=== PATIENT | female | born 1965 | race Caucasian/White ===

== ENCOUNTER → 2019-04-23 06:52 | Outpatient (CLI) | payer OTHER, SELFPAY ==
--- NOTE | 2019-04-23 06:55 | DI.MG.S_ITS ---
BILATERAL DIGITAL SCREENING MAMMOGRAM 3D/2D WITH CAD: 04/23/2019 CLINICAL: Routine screening. Comparison is made to exams dated: 03/20/2018 mammogram, 03/14/2017 mammogram, and 02/29/2016 mammogram - [facility]. There are scattered fibroglandular elements in both breasts. Current study was also evaluated with a Computer Aided Detection (CAD) system. No significant masses, calcifications, or other findings are seen in either breast. There has been no significant interval change. IMPRESSION: NEGATIVE There is no mammographic evidence of malignancy. A 1 year screening mammogram is recommended. This exam was interpreted at Station ID: [id number]. NOTE: For mammograms, a report in lay terms will be sent to the patient. Approximately 15% of breast malignancies will not be visualized mammographically. In the management of a palpable breast mass, a negative mammogram must not discourage biopsy of a clinically suspicious lesion. Electronically Signed By: Eric Huynh M.D. [facility]/paul:04/23/2019 18:59:17 letter sent: Normal Exam ACR BI-RADS Category 1: Negative 3341F
[2019-04-23 08:17] LABS: Hematocrit 42.8 % (36-46); Hemoglobin 14.7 g/dL (12.0-16.0); Mean Corpuscular HGB Conc 34.4 % (30-36); Mean Corpuscular Hemoglobin 30.3 PG (26-34); Platelet Count 235 X10^3/uL (150-400); Red Blood Cell Count 4.86 X10^6/uL (4.0-5.2); Red Cell Distribution Width 12.7 % (11.6-14.8); White Blood Cell Count 5.6 X10^3/uL (4.5-11.0)
[2019-04-23 08:30] LABS: Alanine Aminotransferase 17 IU/L (9-52); Albumin 4.7 g/dL (3.5-5.0); Albumin Globulin Ratio 1.6 (1.0-2.8); Alkaline Phosphatase 81 U/L (38-126); Aspartate Aminotransferase 23 IU/L (14-36); Bilirubin Total 0.7 mg/dL (0.2-1.3); Blood Urea Nitrogen 14 mg/dL (7-17); Calcium 9.8 mg/dL (8.4-10.2); Carbon Dioxide 29 mmol/L (22-32); Chloride 100 mmol/L (98-107); Cholesterol 253 mg/dL (140-199); Estimated Glomerular Filt Rate > 60.0 mL/min (>60); Globulin 2.9 g/dL (1.7-4.1); Glucose 99 mg/dL (70-100); HDL Cholesterol 71 mg/dL (40-60); HEMOLYSIS < 15 (0-50); LDL Cholesterol Calculated 156 mg/dL (<100); Potassium 4.6 mmol/L (3.4-5.1); Sodium 140 mmol/L (137-145); Total Protein 7.6 g/dL (6.3-8.2); Triglycerides 129 mg/dL (35-150)
[2019-04-23 08:42] LABS: Appearance Urine UA CLEAR; Bilirubin Urine UA NEGATIVE (NEGATIVE); Color Urine UA YELLOW; Glucose Urine UA NEGATIVE (Negative); Ketones Urine UA NEGATIVE (NEGATIVE); Leukocyte Esterase Urine UA NEGATIVE (NEGATIVE); Nitrite Urine UA NEGATIVE (Negative); Occult Blood Urine UA NEGATIVE (Negative); Protein Urine UA NEGATIVE (Negative); Specific Gravity Urine UA 1.015 (1.000-1.035); Urobilinogen Urine UA 0.2 E.U./dL (0.2); pH Urine UA 5.5 (4.5-8.0)
[2019-04-23 09:09] LABS: Thyroid Stimulating Hormone 2.51 uIU/mL (0.47-4.68)
[2019-04-23 15:57] LABS: Neutrophils Absolute Manual 2352 /uL (3000-5900); Total Cells Counted 100
[2019-04-23 15:58] LABS: RBC Morphology Normal Morphology
== END ==
PROVIDERS: PCP Family Medicine; Visit Provider Family Medicine
DX: Z12.39 Encounter for other screening for malignant neoplasm of breast (principal); Z00.00 Encounter for general adult medical examination without abnormal findings; Z13.220 Encounter for screening for lipoid disorders; Z13.29 Encounter for screening for other suspected endocrine disorder
CPT/HCPCS: 36415; 77063; 77067; 80053; 80061; 81003; 84443; 85025

== ENCOUNTER → 2019-07-22 07:03 | Outpatient (CLI) | payer OTHER, SELFPAY ==
[2019-07-22 08:28] LABS: Alanine Aminotransferase 14 IU/L (<35); Albumin 4.6 g/dL (3.5-5.0); Albumin Globulin Ratio 1.7 (1.0-2.8); Alkaline Phosphatase 79 U/L (38-126); Aspartate Aminotransferase 25 IU/L (14-36); BUN Creatinine Ratio 18.8 (6-22); Bilirubin Total 0.7 mg/dL (0.2-1.3); Blood Urea Nitrogen 15 mg/dL (7-17); Calcium 9.6 mg/dL (8.4-10.2); Carbon Dioxide 30 mmol/L (22-32); Chloride 102 mmol/L (98-107); Cholesterol 162 mg/dL (140-199); Estimated Glomerular Filt Rate > 60.0 mL/min (>60); Globulin 2.7 g/dL (1.7-4.1); Glucose 101 mg/dL (70-100); HDL Cholesterol 57 mg/dL (40-60); HEMOLYSIS < 15 (0-50); LDL Cholesterol Calculated 81 mg/dL (<100); Sodium 141 mmol/L (137-145); Total Protein 7.3 g/dL (6.3-8.2); Triglycerides 122 mg/dL (35-150)
== END ==
PROVIDERS: PCP Family Medicine; Visit Provider Family Medicine
DX: E78.5 Hyperlipidemia, unspecified (principal)
CPT/HCPCS: 36415; 80053; 80061

== ENCOUNTER → 2019-12-31 07:01 | Outpatient (CLI) | payer OTHER, SELFPAY ==
[2019-12-31 08:40] LABS: Alanine Aminotransferase 18 IU/L (<35); Albumin 4.5 g/dL (3.5-5.0); Albumin Globulin Ratio 1.7 (1.0-2.8); Alkaline Phosphatase 76 U/L (38-126); Aspartate Aminotransferase 28 IU/L (14-36); BUN Creatinine Ratio 18.8 (6-22); Bilirubin Total 0.4 mg/dL (0.2-1.3); Blood Urea Nitrogen 13 mg/dL (7-17); Calcium 9.7 mg/dL (8.4-10.2); Carbon Dioxide 28 mmol/L (22-32); Chloride 104 mmol/L (98-107); Cholesterol 166 mg/dL (140-199); Estimated Glomerular Filt Rate > 60.0 mL/min (>60); Globulin 2.7 g/dL (1.7-4.1); Glucose 100 mg/dL (70-100); HDL Cholesterol 67 mg/dL (40-60); HEMOLYSIS < 15 (0-50); LDL Cholesterol Calculated 77 mg/dL (<100); Potassium 4.2 mmol/L (3.4-5.1); Sodium 140 mmol/L (137-145); Total Protein 7.2 g/dL (6.3-8.2); Triglycerides 110 mg/dL (35-150)
== END ==
PROVIDERS: PCP Family Medicine; Referring Provider Family Medicine; Visit Provider Family Medicine
DX: E78.5 Hyperlipidemia, unspecified (principal)
CPT/HCPCS: 36415; 80053; 80061

== ENCOUNTER → 2020-05-04 08:46 | Outpatient (CLI) | payer OTHER, SELFPAY ==
[2020-05-04 09:28] LABS: Add Manual Diff / Slide Review NO; Basophils Absolute Auto 0 /uL (0-100); Basophils Percent Auto 0.6 % (0-2); Eosinophils Absolute Auto 200 /uL (0-450); Eosinophils Percent Auto 4.3 % (2-4); Hematocrit 41.4 % (36-46); Hemoglobin 14.2 g/dL (12.0-16.0); Lymphocytes Absolute Auto 2100 /uL (1100-4500); Lymphocytes Percent Auto 35.9 % (25-40); Mean Corpuscular HGB Conc 34.4 % (30-36); Mean Corpuscular Hemoglobin 30.6 PG (26-34); Monocytes Absolute Auto 400 /uL (0-900); Monocytes Percent Auto 6.8 % (3-14); Neutrophils Absolute Auto 3000 /uL (1500-7000); Neutrophils Percent Auto 52.4 % (50-75); Platelet Count 225 X10^3/uL (150-400); Red Blood Cell Count 4.65 X10^6/uL (4.0-5.2); White Blood Cell Count 5.8 X10^3/uL (4.5-11.0)
[2020-05-04 09:39] LABS: Hemoglobin A1C% w Est Avg Glu 5.1 % (4.0-6.0)
[2020-05-04 10:02] LABS: Alanine Aminotransferase 14 IU/L (<35); Albumin 4.7 g/dL (3.5-5.0); Albumin Globulin Ratio 1.7 (1.0-2.8); Alkaline Phosphatase 80 U/L (38-126); Aspartate Aminotransferase 23 IU/L (14-36); BUN Creatinine Ratio 20.8 (6-22); Bilirubin Total 0.5 mg/dL (0.2-1.3); Blood Urea Nitrogen 16 mg/dL (7-17); Calcium 9.8 mg/dL (8.4-10.2); Carbon Dioxide 30 mmol/L (22-32); Chloride 101 mmol/L (98-107); Cholesterol 188 mg/dL (140-199); Estimated Glomerular Filt Rate > 60.0 mL/min (>60); Globulin 2.8 g/dL (1.7-4.1); Glucose 97 mg/dL (70-100); HDL Cholesterol 70 mg/dL (40-60); HEMOLYSIS < 15 (0-50); LDL Cholesterol Calculated 87 mg/dL (<100); Potassium 4.7 mmol/L (3.4-5.1); Sodium 137 mmol/L (137-145); Total Protein 7.5 g/dL (6.3-8.2); Triglycerides 153 mg/dL (35-150)
[2020-05-04 10:08] LABS: TSH w/ Reflex to FT4 1.97 uIU/mL (0.47-4.68)
--- NOTE | 2020-05-04 11:28 | DI.MG.S_ITS ---
Patient Name: TOMAS MILIAN date: 1965 Sex: F Attending Physician: Olivia Indications: Date: 05/04/2020 11:34 At the request of: VISH VASQUEZ Procedure: MM screening mammo BI BILATERAL DIGITAL SCREENING MAMMOGRAM 3D/2D WITH CAD: 05/04/2020 CLINICAL: Routine screening. Comparison is made to exams dated: 04/23/2019 mammogram - [facility], 03/20/2018 mammogram, and 03/14/2017 mammogram - [facility]. There are scattered fibroglandular elements in both breasts. Current study was also evaluated with a Computer Aided Detection (CAD) system. There are grouped calcifications in the right breast at 7 o'clock middle depth. No other significant masses, calcifications, or other findings are seen in either breast. IMPRESSION: INCOMPLETE: NEEDS ADDITIONAL IMAGING EVALUATION The grouped calcifications in the right breast are indeterminate. Spot magnification views are recommended. This exam was interpreted at Station ID: [id number]. NOTE: For mammograms, a report in lay terms will be sent to the patient. Approximately 15% of breast malignancies will not be visualized mammographically. In the management of a palpable breast mass, a negative mammogram must not discourage biopsy of a clinically suspicious lesion. Electronically Signed By: Breanna garg/:05/04/2020 11:44:17 letter sent: Additional Imaging Needed ACR BI-RADS Category 0: Incomplete 3340F
== END ==
PROVIDERS: PCP Family Medicine; Referring Provider Family Medicine; Visit Provider Family Medicine
DX: Z12.31 Encounter for screening mammogram for malignant neoplasm of breast; E78.5 Hyperlipidemia, unspecified
CPT/HCPCS: 36415; 77063; 77067; 80053; 80061; 83036; 84443; 85025

== ENCOUNTER → 2020-06-02 13:54 | Outpatient (CLI) | payer OTHER, SELFPAY ==
--- NOTE | 2020-06-02 13:54 | DI.MG.S_ITS ---
UNILATERAL RIGHT DIGITAL DIAGNOSTIC MAMMOGRAM 3D/2D WITH ADDITIONAL VIEWS: 06/02/2020 CLINICAL: Additional evaluation requested from prior study. Comparison is made to exams dated: 05/04/2020 mammogram - [facility], 03/20/2018 [facility] - [facility], [facility]. There are scattered fibroglandular elements in right breast. Previously seen grouped microcalcifications in the right breast at 7 o'clock middle depth are no longer demonstrated. No other significant masses or calcifications are seen in the breast. IMPRESSION: PROBABLY BENIGN Previously demonstrated grouped microcalcifcations are not present on the current exam. These may have been artifactual on the preceding screeening mammogram. A 6 month follow-up is recommended to ensure stability. This exam was interpreted at Station ID: [id number]. NOTE: For mammograms, a report in lay terms will be sent to the patient. Approximately 15% of breast malignancies will not be visualized mammographically. In the management of a palpable breast mass, a negative mammogram must not discourage biopsy of a clinically suspicious lesion. Electronically Signed By: Gerard Vega M.D. jr/:06/02/2020 14:38:35 letter sent: Followup Recommended ACR BI-RADS Category 3: Probably benign 3343F
== END ==
PROVIDERS: PCP Family Medicine; Referring Provider Family Medicine; Visit Provider Nurse Practitioner Family
DX: R92.8 Other abnormal and inconclusive findings on diagnostic imaging of breast (principal)
CPT/HCPCS: 77065; G0279

== ENCOUNTER → 2020-11-08 09:04 | Outpatient (CLI) | payer OTHER, SELFPAY ==
--- NOTE | 2020-11-08 09:05 | DI.MG.S_ITS ---
UNILATERAL RIGHT DIGITAL DIAGNOSTIC MAMMOGRAM 3D/2D SHORT-TERM FOLLOW-UP: 11/08/2020 CLINICAL: Short term follow up of the right breast. Comparison is made to exams dated: 06/02/2020 mammogram, 05/04/2020 mammogram, 04/23/2019 mammogram - [facility], 03/20/2018 mammogram, 03/14/2017 mammogram, and 02/29/2016 mammogram - [facility]. There are scattered fibroglandular elements in right breast. There are stable grouped fine calcifications in the right breast at 6 o'clock middle depth. These appear stable compared to prior exams. No discrete calcifications are visualized on magnification views. The findings again are likely artifactual. No other significant masses or calcifications are seen in the breast. IMPRESSION: BENIGN There is no mammographic evidence of malignancy. Return to annual mammogram screening schedule is recommended. This exam was interpreted at Station ID: [id number]. NOTE: For mammograms, a report in lay terms will be sent to the patient. Approximately 15% of breast malignancies will not be visualized mammographically. In the management of a palpable breast mass, a negative mammogram must not discourage biopsy of a clinically suspicious lesion. Electronically Signed By: Tim cruz/:11/08/2020 09:34:38 letter sent: Normal Exam ACR BI-RADS Category 2: Benign Finding(s) 3342F
== END ==
PROVIDERS: PCP Family Medicine; Referring Provider Family Medicine; Visit Provider Family Medicine
DX: R92.8 Other abnormal and inconclusive findings on diagnostic imaging of breast (principal); N63.10 Unspecified lump in the right breast, unspecified quadrant
CPT/HCPCS: 77065; G0279

== ENCOUNTER → 2021-02-04 07:14 | Outpatient (CLI) | payer OTHER, SELFPAY ==
[2021-02-04 08:24] LABS: Alanine Aminotransferase 16 IU/L (<35); Albumin 4.3 g/dL (3.5-5.0); Albumin Globulin Ratio 1.5 (1.0-2.8); Alkaline Phosphatase 96 U/L (38-126); Aspartate Aminotransferase 26 IU/L (14-36); BUN Creatinine Ratio 18.4 (6-22); Bilirubin Total 0.5 mg/dL (0.2-1.3); Blood Urea Nitrogen 14 mg/dL (7-17); Calcium 9.7 mg/dL (8.4-10.2); Carbon Dioxide 27 mmol/L (22-32); Chloride 103 mmol/L (98-107); Cholesterol 181 mg/dL (140-199); Estimated Glomerular Filt Rate > 60.0 mL/min (>60); Globulin 2.9 g/dL (1.7-4.1); Glucose 98 mg/dL (70-100); HDL Cholesterol 70 mg/dL (40-60); HEMOLYSIS < 15 (0-50); LDL Cholesterol Calculated 89 mg/dL (<100); Potassium 4.2 mmol/L (3.4-5.1); Sodium 138 mmol/L (137-145); Total Protein 7.2 g/dL (6.3-8.2); Triglycerides 110 mg/dL (35-150)
== END ==
PROVIDERS: PCP Family Medicine; Referring Provider Family Medicine; Visit Provider Family Medicine
DX: E78.5 Hyperlipidemia, unspecified (principal)
CPT/HCPCS: 36415; 80053; 80061

== ENCOUNTER → 2021-05-14 11:13 | Outpatient (CLI) | payer OTHER, SELFPAY ==
--- NOTE | 2021-05-14 11:14 | DI.MG.S_ITS ---
BILATERAL DIGITAL SCREENING MAMMOGRAM 3D/2D WITH CAD: 05/14/2021 CLINICAL: Routine screening. Comparison is made to exams dated: 11/08/2020 mammogram, 06/02/2020 mammogram, 05/04/2020 mammogram, and 04/23/2019 mammogram - [facility]. There are scattered fibroglandular elements in both breasts. Current study was also evaluated with a Computer Aided Detection (CAD) system. No significant masses, calcifications, or other findings are seen in either breast. There has been no significant interval change. IMPRESSION: NEGATIVE There is no mammographic evidence of malignancy. A 1 year screening mammogram is recommended. This exam was interpreted at Station ID: [id number]. NOTE: For mammograms, a report in lay terms will be sent to the patient. Approximately 15% of breast malignancies will not be visualized mammographically. In the management of a palpable breast mass, a negative mammogram must not discourage biopsy of a clinically suspicious lesion. Electronically Signed By: Preston sullivan/paul:05/16/2021 07:53:09 letter sent: Normal Exam ACR BI-RADS Category 1: Negative 3341F
== END ==
PROVIDERS: PCP Family Medicine; Referring Provider Family Medicine; Visit Provider Family Medicine
DX: Z12.31 Encounter for screening mammogram for malignant neoplasm of breast (principal)
CPT/HCPCS: 77063; 77067

== ENCOUNTER → 2022-05-09 08:46 | Outpatient (CLI) | payer OTHER, SELFPAY ==
[2022-05-09 09:50] LABS: Add Manual Diff / Slide Review NO; Basophils Absolute Auto 0 /uL (0-100); Basophils Percent Auto 0.5 % (0-2); Eosinophils Absolute Auto 200 /uL (0-450); Eosinophils Percent Auto 3.7 % (2-4); Hematocrit 39.9 % (36-46); Hemoglobin 13.5 g/dL (12.0-16.0); Lymphocytes Absolute Auto 1800 /uL (1100-4500); Lymphocytes Percent Auto 37.1 % (25-40); Mean Corpuscular Hemoglobin 28.9 PG (26-34); Monocytes Absolute Auto 400 /uL (0-900); Monocytes Percent Auto 8.7 % (3-14); Neutrophils Absolute Auto 2400 /uL (1500-7000); Platelet Count 234 X10^3/uL (150-400); Red Blood Cell Count 4.69 X10^6/uL (4.0-5.2); Red Cell Distribution Width 14.6 % (11.6-14.8); White Blood Cell Count 4.9 X10^3/uL (4.5-11.0)
[2022-05-09 11:09] LABS: Alanine Aminotransferase 15 IU/L (<35); Albumin 4.5 g/dL (3.5-5.0); Albumin Globulin Ratio 1.5 (1.0-2.8); Alkaline Phosphatase 85 U/L (38-126); Aspartate Aminotransferase 23 IU/L (14-36); BUN Creatinine Ratio 16.9 (6-22); Bilirubin Total 0.7 mg/dL (0.2-1.3); Blood Urea Nitrogen 12 mg/dL (7-17); Calcium 9.1 mg/dL (8.4-10.2); Carbon Dioxide 27 mmol/L (22-32); Chloride 104 mmol/L (98-107); Cholesterol 183 mg/dL (140-199); Estimated Glomerular Filt Rate > 60 mL/min (>60); Glucose 95 mg/dL (70-100); HDL Cholesterol 64 mg/dL (40-60); HEMOLYSIS < 15 (0-50); LDL Cholesterol Calculated 98 mg/dL (<100); Potassium 3.9 mmol/L (3.4-5.1); Sodium 139 mmol/L (137-145); Total Protein 7.5 g/dL (6.3-8.2); Triglycerides 106 mg/dL (35-150)
== END ==
PROVIDERS: PCP Family Medicine; Referring Provider Family Medicine; Visit Provider Family Medicine
DX: E78.2 Mixed hyperlipidemia (principal); Z76.89 Persons encountering health services in other specified circumstances
CPT/HCPCS: 36415; 80053; 80061; 85025

== ENCOUNTER → 2022-07-25 08:30 | Outpatient (CLI) | payer OTHER, SELFPAY ==
--- NOTE | 2022-07-25 08:31 | DI.US.S_ITS ---
PROCEDURE: US THYROID INDICATIONS: NODULE TECHNIQUE: Real-time scanning was performed of the thyroid gland, with image documentation. COMPARISON: None. FINDINGS: Right: Thyroid lobe measures 5.6 x 1.0 x 1.6 cm, and is heterogeneous in echotexture. Left: Thyroid lobe measures 5.2 x 1.7 x 1.8 cm, and is heterogeneous in echotexture. Isthmus: 2.5 mm thick. Numerous tiny nodules are seen bilaterally. Nodule number: 1 Location: Left inferior Size: 2.7 x 1.5 x 1.6 cm. Composition: Solid Echogenicity: Hypoechoic Shape: wider than tall. Margins: Smokes Echogenic foci: Non Total points: 4 ACR TI-RADS category: 4 IMPRESSION: 1. A moderately suspicious hypoechoic solid nodule in the inferior pole of the left thyroid lobe. Recommend ultrasound-guided fine-needle aspiration biopsy. 2. Numerous tiny nodules are seen bilaterally. ACR TI-RADS definitions and recommendations: TI-RADS 1 (benign): 0 points. FNA not needed. TI-RADS 2 (not suspicious): 2 points. FNA not needed. TI-RADS 3 (mildly suspicious): 3 points. * FNA if 2.5 cm or larger, follow up if 1.5 cm or larger (at 1, 3, and 5 years). TI-RADS 4 (moderately suspicious): 4-6 points. * FNA if 1.5 cm or larger, follow up if 1 cm or larger (at 1, 2, 3, and 5 years). TI-RADS 5 (highly suspicious): 7 points or more. * FNA if 1 cm or larger, follow up if 0.5 cm or larger (every year for 5 years). Dictated by: Jeanine Brito M.D. on 07/25/2022 at 18:39 Approved by: Jeanine Brito M.D. on 07/25/2022 at 18:43
== END ==
PROVIDERS: PCP Family Medicine; Referring Provider Family Medicine; Visit Provider Family Medicine
DX: E04.1 Nontoxic single thyroid nodule (principal)
CPT/HCPCS: 76536

== ENCOUNTER 2022-10-11 06:27 | Day surgery (SDC) | payer OTHER, SELFPAY ==
[2022-10-09 13:13] VITALS: BMI 33.8
[2022-10-11] VITALS (7 sets, daily range): BP systolic 91–153; BP diastolic 59–103; PULSE 91–114; RESP 12–18; TEMP 35.8–36.3; O2SAT 100; BMI 33.8
--- NOTE | 2022-10-11 | PATH_ITS ---
[facility] Accession Number: [id number] No. of containers..01 Tissue . 01 Material submitted: . THYROID - LEFT THYROID . 01 Diagnosis: Left Lobe of Thyroid, Lobectomy: Adenomatoid nodule, present in association with multinodular hyperplasia (multiple colloid nodules). Negative for neoplasia and malignancy. MRV 10/17/2022 1820 Local . 01 Electronically signed: . Gisela Ron MD, Pathologist NPI- [id number] . 01 Gross description: . The specimen is received in formalin labeled with the patient's name, , and left thyroid and consists of an oriented left thyroid with a short black suture with no designation, per the requisition, and is now designated superior. The specimen weighs 5 grams and measures 3.2 cm SI, 2.6 cm ML, and 1.4 cm AP. The external surface is brown and slightly roughened with no discrete nodules identified. The anterior surface is inked blue, the posterior surface is inked black, and the presumed isthmus margin is inked orange. The specimen is serially sectioned from superior to inferior into seven slices to reveal a well-defined brown soft nodule measuring 1.5 x 1.3 x 1.2 cm within slices 3 through 7. The uninvolved parenchyma is brown soft and unremarkable with no additional lesions identified. Torque Tester sections are submitted as follows: . A1: Entire slice 2. A2: Entire slice 4. A3: Entire slice 5. A4: Entire slice 6. ([id number]) /[facility] 10/12/2022 1634 Local . 01 Pathologist provided ICD-10: E04.9 . 01 CPT . 767095 Specimen Comment: A courtesy copy of this report has been sent to [phone] Performed at: [address] [facility] [address] [facility] [place] [facility] [place], [place], [place] [id number] MD Tim Forrest MD Phone: [phone]
--- NOTE | 2022-10-11 07:34 | PM.PREOP ---
Pre-operative Note Interval Note History & Physical reviewed/Exam performed by Physician: Yes Changes to H&P: No
[2022-10-11] MEDS: LACTATED RINGERS 1,000 ML 100 ML IV ×2 (07:36→09:22)
[2022-10-11] MEDS: CEFAZOLIN 2 GM/100 ML PREMIX 100 ML IV (07:55)
--- NOTE | 2022-10-11 08:20 | SUR.OPER ---
Beach chair on padded OR bed. Head on gel donut, gel pad under heels. Bilateral arms padded with gel pads. Draw sheet brought over torso and secured. Pillow under knees. Safety belt at thigh. Cloth tape over blanket over lower legs.
[2022-10-11] MEDS: BUPIVACAINE 0.5% W/ EPI (PF) 30 ML VIAL INJ (08:43)
--- NOTE | 2022-10-11 09:50 | P.OP_ITS ---
Operative Date/Time/Diagnoses Date of procedure: 10/11/22 Time of procedure: 09:50 Pre-op diagnosis: Left thyroid mass Post-op diagnosis: same Procedure & Clinicians Procedure: Left axel thyroidectomy Same procedure as scheduled: Yes Indications: 57-year-old woman with globus sensation as result of a nontoxic benign left thyroid nodule, 3 cm. Surgeon: Teddy Bradford Rn Endocrinology: Angie Kimball Anesthesia Type: General Operative Notes Findings: Prominent left thyroid nodule. No lymphadenopathy. Specimen(s): other (Left axel thyroid) Estimated Blood Loss (mL): 10 Procedure in detail: Patient was brought to the operating room and placed supine on the table. Bilateral lower extremity compression devices were applied. General anesthesia was induced and he was intubated with an endotracheal tube. 2 g of Ancef were infused prior to skin incision. A shoulder roll was placed between the scapula to extend the neck. She was prepped and draped in sterile fashion. A time-out was performed to ensure the correct patient procedure necessary equipment within the operating room. A 6 cm collar incision 2 fingerbreadths above the sternal notch was made in the natural skin crease of her neck. The subcutaneous tissue was divided as well as the platysma using electrocautery. Subplatysmal flaps were developed in all directions. The midline raphe between the strap muscles was opened vertically along the direction of its fibers. The left thyroid lobe was prominent. The superior pole of the thyroid was approached 1st. The superior pole vessels were divided between silk suture close to the thyroid capsule. The external branch of the superior laryngeal nerve was observed as it approached the cricothyroid muscle. The superior parathyroid gland was identified and carefuly disected off the the thyroid for preservation The inferior pole was approached and the strap muscles were carefully dissected away from the thyroid. The thyroid was then mobilized medial and anterior and this provided exposure of the recurrent laryngeal nerve running in the tracheoesophageal groove and was protected posteriorly out of harms way. The middle thyroid vein was ligated and divided. The inferior parathyroid gland was identified on the posterior surface of the inferior thyroid pole and was diss ected off the thyroid for preservation. The thyroid lobe was then dissected off of the trachea in its entirety and passed off the field as specimen. The field was copiously irrigated with water and hemostasis was achieved. A Valsalva was provided and there was no evidence of hemorrhage. The left thyroid bed was then dressed with Surgicel. Strap muscles were reapproximated using 3 0 Vicryl and the platysma with 4 0 Vicryl. The skin was closed with a running 4-0 Monocryl suture followed by the application of Dermabond. Patient tolerated the procedure well. She emerged from anesthesia was extubated and transferred to the postoperative care unit in stable condition. The assistance of Dr. Kimball was necessary for assistance with exposure of the thyroid and its surrounding critical structures. Post-operative Condition: stable Disposition: same day surgery
== END 2022-10-11 10:32 | disposition home or self-care (01) ==
PROVIDERS: PCP Family Medicine; Referring Provider Surgery; Visit Provider Surgery
PROC: (CPT 60220; principal; 2022-10-11 07:45)
DX: E04.2 Nontoxic multinodular goiter (principal)
CPT/HCPCS: 60220; J0330; J0690; J1100; J1885; J2405; J2704; J3010

== ENCOUNTER → 2022-11-15 10:15 | Outpatient (CLI) | payer OTHER, SELFPAY ==
[2022-11-15 11:49] LABS: TSH w/ Reflex to FT4 1.47 uIU/mL (0.47-4.68)
== END ==
PROVIDERS: PCP Family Medicine; Referring Provider Surgery; Visit Provider Surgery
DX: E89.0 Postprocedural hypothyroidism (principal)
CPT/HCPCS: 36415; 84443

== ENCOUNTER → 2023-06-05 10:28 | Outpatient (CLI) | payer OTHER, SELFPAY ==
--- NOTE | 2023-06-05 10:30 | DI.US.S_ITS ---
PROCEDURE: US THYROID INDICATIONS: GLOBULUS SENSTATION TECHNIQUE: Real-time scanning was performed of the thyroid gland, with image documentation. COMPARISON: [facility], US, US THYROID, 07/25/2022, 8:35. FINDINGS: Right: Thyroid lobe measures 5.6 x 1.1 x 1.6 cm, and is homogeneous in echotexture. Left: Patient is status post interval left thyroidectomy with ill-defined soft tissue within left thyroid bed measures 1.2 x 0.5 x 0.4 cm in size and is homogenous in echotexture. Isthmus: 3 mm thick. Nodule number: 1 Location: Upper pole of right thyroid lobe Size: 0.6 x 0.2 x 0.4 cm. Composition: Solid Echogenicity: Hypoechoic Shape: Wider than tall Margins: Smooth Echogenic foci: Non Total points: 4 ACR TI-RADS category: Moderately suspicious. Nodule number: 2 Location: Mid pole right thyroid lobe Size: 0.5 x 0.4 x 0.3 cm Composition: Solid Echogenicity: Hypoechoic Shape: Wider than tall Margins: Smooth Echogenic foci: None Total points: 4 ACR TI-RADS category: Moderately suspicious IMPRESSION: 1. Finding is suggestive of interval left thyroidectomy with small amount of residual tissue in left thyroid bed as described above. Ultrasound follow-up is recommended. 2. Sub cm moderately suspicious right thyroid nodules as described above. ACR TI-RADS definitions and recommendations: TI-RADS 1 (benign): 0 points. FNA not needed. TI-RADS 2 (not suspicious): 2 points. FNA not needed. TI-RADS 3 (mildly suspicious): 3 points. * FNA if 2.5 cm or larger, follow up if 1.5 cm or larger (at 1, 3, and 5 years). TI-RADS 4 (moderately suspicious): 4-6 points. * FNA if 1.5 cm or larger, follow up if 1 cm or larger (at 1, 2, 3, and 5 years). TI-RADS 5 (highly suspicious): 7 points or more. * FNA if 1 cm or larger, follow up if 0.5 cm or larger (every year for 5 years). Dictated by: Saurabh Conde M.D. on 06/05/2023 at 12:42 Approved by: Saurabh Conde M.D. on 06/05/2023 at 12:45
== END ==
PROVIDERS: PCP Family Medicine; Referring Provider Surgery; Visit Provider Surgery
DX: E04.2 Nontoxic multinodular goiter (principal); R13.10 Dysphagia, unspecified; E89.0 Postprocedural hypothyroidism
CPT/HCPCS: 76536

== ENCOUNTER → 2023-06-12 09:04 | Outpatient (CLI) | payer OTHER, SELFPAY ==
--- NOTE | 2023-06-12 | DI.MG.S_ITS ---
BILATERAL DIGITAL SCREENING MAMMOGRAM 3D/2D WITH CAD: 06/12/2023 CLINICAL: Routine screening. Comparison is made to exams dated: 01/16/2022 mammogram - [facility], 05/14/2021 mammogram, 11/08/2020 mammogram, 05/04/2020 mammogram, 04/23/[address] - [facility], and 03/20/2018 mammogram - [facility]. There are scattered areas of fibroglandular density in both breasts (category b / 25%-50% glandular tissue). Current study was also evaluated with a Computer Aided Detection (CAD) system. No significant masses, calcifications, or other findings are seen in either breast. There has been no significant interval change. IMPRESSION: NEGATIVE There is no mammographic evidence of malignancy. A 1 year screening mammogram is recommended. Based on the Tyrer Cuzick model (a risk assessment model) the patient's lifetime risk is 7.1% and her 10 year risk is 2.6%. According to the ACR, ACS, and NCCN guidelines, an annual breast MRI exam along with mammogram is recommended if the patient's lifetime risk is 20% or greater. This exam was interpreted at Station ID: [id number]. NOTE: For mammograms, a report in lay terms will be sent to the patient. Approximately 15% of breast malignancies will not be visualized mammographically. In the management of a palpable breast mass, a negative mammogram must not discourage biopsy of a clinically suspicious lesion. Electronically Signed By: Eric sawyer/paul:06/12/2023 13:32:32 letter sent: Normal Exam ACR BI-RADS Category 1: Negative 3341F
== END ==
PROVIDERS: PCP Family Medicine; Referring Provider Family Medicine; Visit Provider Family Medicine
DX: Z12.31 Encounter for screening mammogram for malignant neoplasm of breast (principal)
CPT/HCPCS: 77063; 77067

== ENCOUNTER → 2023-06-15 09:33 | Outpatient (CLI) | payer OTHER, SELFPAY ==
--- NOTE | 2023-06-15 09:34 | DI.RAD.S_ITS ---
PROCEDURE: ESOPHOGRAM W/AIR INDICATIONS: FU after thyroid US COMPARISON: None. FINDINGS: Function: There is normal esophageal peristalsis. No elicited gastroesophageal reflux. There is normal transit of a calibrated barium tablet through the esophagus into the stomach. Morphology: Air-contrast images demonstrate normal mucosal morphology. Single contrast views show no esophageal strictures, extrinsic mass effects, or diverticula. Limited images of the stomach demonstrate normal appearance. IMPRESSION: No significant esophageal dysmotility. No upper esophageal diverticulum. No stricture. Dictated by: Eric Huynh M.D. on 06/15/2023 at 11:40 Approved by: Eric Huynh M.D. on 06/15/2023 at 11:41
== END ==
PROVIDERS: PCP Family Medicine; Referring Provider Surgery; Visit Provider Surgery
DX: R13.10 Dysphagia, unspecified (principal); R09.A2 Foreign body sensation, throat
CPT/HCPCS: 74220

== ENCOUNTER → 2023-08-22 08:50 | Outpatient (CLI) | payer OTHER, SELFPAY ==
[2023-08-22 10:05] LABS: Add Manual Diff / Slide Review NO; Basophils Absolute Auto 0 /uL (0-100); Basophils Percent Auto 0.7 % (0-2); Eosinophils Absolute Auto 200 /uL (0-450); Eosinophils Percent Auto 4.4 % (2-4); Hematocrit 42.7 % (36-46); Hemoglobin 14.8 g/dL (12.0-16.0); Lymphocytes Absolute Auto 1900 /uL (1100-4500); Mean Corpuscular HGB Conc 34.5 % (30-36); Mean Corpuscular Hemoglobin 30.1 PG (26-34); Monocytes Absolute Auto 400 /uL (0-900); Monocytes Percent Auto 7.8 % (3-14); Neutrophils Absolute Auto 2600 /uL (1500-7000); Neutrophils Percent Auto 51.1 % (50-75); Platelet Count 216 X10^3/uL (150-400); Red Blood Cell Count 4.91 X10^6/uL (4.0-5.2); Red Cell Distribution Width 12.5 % (11.6-14.8); White Blood Cell Count 5.2 X10^3/uL (4.5-11.0)
[2023-08-22 10:33] LABS: Alanine Aminotransferase 18 IU/L (<35); Albumin 4.6 g/dL (3.5-5.0); Albumin Globulin Ratio 1.4 (1.0-2.8); Alkaline Phosphatase 77 U/L (38-126); Aspartate Aminotransferase 24 IU/L (14-36); BUN Creatinine Ratio 19.1 (6-22); Bilirubin Total 0.9 mg/dL (0.2-1.3); Blood Urea Nitrogen 13 mg/dL (7-17); Calcium 9.7 mg/dL (8.4-10.2); Carbon Dioxide 28 mmol/L (22-32); Chloride 103 mmol/L (98-107); Cholesterol 178 mg/dL (140-199); Estimated Glomerular Filt Rate > 60 mL/min (>60); Globulin 3.2 g/dL (1.7-4.1); Glucose 94 mg/dL (70-100); HDL Cholesterol 62 mg/dL (40-60); HEMOLYSIS < 15 (0-50); LDL Cholesterol Calculated 97 mg/dL (<100); Potassium 3.9 mmol/L (3.4-5.1); Sodium 140 mmol/L (137-145); Total Protein 7.8 g/dL (6.3-8.2); Triglycerides 93 mg/dL (35-150)
== END ==
PROVIDERS: PCP Family Medicine; Referring Provider Family Medicine; Visit Provider Family Medicine
DX: E78.2 Mixed hyperlipidemia (principal); E04.9 Nontoxic goiter, unspecified
CPT/HCPCS: 36415; 80053; 80061; 84443; 85025

== ENCOUNTER → 2023-08-30 09:36 | Outpatient (CLI) | payer OTHER, SELFPAY ==
--- NOTE | 2023-08-30 09:37 | DI.RAD.S_ITS ---
Bone Density Report Name: TOMAS MILIAN Age: 58 Sex: Female Ethnicity: White Date of : 1965 Indication: postmenopausal; screening for osteoporosis; Referring Provider: LELAND PÉREZ Study: Bone densitometry was performed. Exam Date: August 30, 2023 Accession number: [id number] Bone Density: Region BMD T-score Z-score Classification AP Spine(L1, L2, L4) 0.700 -3.0 -1.8 Osteoporosis Femoral Neck (Left) 0.589 -2.3 -1.1 Osteopenia Total Hip (Left) 0.663 -2.3 -1.4 Osteopenia Femoral Neck (Right) 0.604 -2.2 -1.0 Osteopenia Total Hip (Right) 0.650 -2.4 -1.5 Osteopenia Total Hip Mean 0.656 -2.4 -1.5 Osteopenia World Health Organization criteria for BMD impression classify patients as: Normal (T-score at or above -1.0), Osteopenia (T-score between -1.0 and -2.5), or Osteoporosis (T-score at or below -2.5). 10-year Fracture Risk: FRAX not reported because: Some T-score for Spine Total or Hip Total or Femoral Neck at or below -2.5 Impression: The patient has osteoporosis, based on the Total Spine T-score. Discussion: INCREASED RISK OF FRACTURE. BONE DENSITY IS UNDESIRABLY LOW AT ONE OR MORE SKELETAL SITES, CONSISTENT WITH POSTMENOPAUSAL OSTEOPOROSIS. This patient's lowest T-score meets the World Health Organization's (WHO) criteria for osteoporosis at one or more sites (T-score -2.5 or below). In untreated patients, the risk of osteoporotic fracture increases approximately two-fold for each 1.0 SD decrease in T-score. Low bone density is not the only risk factor for fracture; also consider factors such as patient's age, frailty or poor health, risk of falling, risk of injury, previous osteoporotic fracture, family history of osteoporosis, cigarette smoking, low body weight, etc. Not everyone with low bone mineral density has osteoporosis; osteomalacia and other metabolic bone disorders should also be considered. Patients who have osteoporosis should be evaluated for specific diseases and conditions (secondary causes) that may cause or contribute to bone loss. The [place] [employer]ocrinologists (AACE) and National Osteoporosis Foundation (NOF) recommend pharmacologic intervention for all postmenopausal women whose T-score is in this range. The patient should follow a healthful lifestyle (good nutrition with adequate calcium and vitamin D, and appropriate weight-bearing exercise). Follow-Up: Consider a repeat BMD and Vertebral Fracture Assessment (VFA) exam in 2 years or sooner if medically necessary, to reassess this patient's status. Reported by: LAZARA FLORES M.D. on 08/30/2023 10:01:00 AM.
== END ==
PROVIDERS: PCP Family Medicine; Referring Provider Family Medicine; Visit Provider Family Medicine
DX: Z13.820 Encounter for screening for osteoporosis (principal); M81.0 Age-related osteoporosis without current pathological fracture
CPT/HCPCS: 77080

== ENCOUNTER → 2023-09-12 13:05 | Outpatient (CLI) | payer OTHER, SELFPAY ==
[2023-09-12 17:18] LABS: Vitamin D 25 Hydroxy (D3) 36.7 ng/mL (30.0-100.0)
== END ==
PROVIDERS: PCP Family Medicine; Referring Provider Family Medicine; Visit Provider Family Medicine
DX: M81.0 Age-related osteoporosis without current pathological fracture (principal); E55.9 Vitamin D deficiency, unspecified
CPT/HCPCS: 36415; 82306

== ENCOUNTER 2023-11-05 09:00 | Outpatient (RCR) | payer OTHER, SELFPAY ==
--- NOTE | 2023-10-04 15:32 | PT.OIE ---
Current Diagnoses Age-related osteoporosis without current pathological fracture (10/04/23) Past Medical History (Last Updated 09/10/23 @ 15:30 by Elias Saleh DO) Arthralgia of hands, bilateral Fibroids (~2015) Osteoporosis Ovarian cyst (~1994) Segmental and somatic dysfunction of rib cage Swallowing problem Thyroid goiter Tinnitus Upper extremity somatic dysfunction Vaginal dryness, menopausal Vitamin D deficiency Well adult exam Past Surgical History (Last Updated 10/19/22 @ 09:57 by Teddy Bradford MD) Anesthesia H/O partial thyroidectomy History of hysterectomy (~01/2016) History of tonsillectomy [place] teeth removed Visit Care Team Role Provider Type Elias Saleh DO Attending Provider Physician Family Provider Primary Care Provider Referring Provider Specialty: [facility] Practice Address: [address] [place] [address], [facility] Email: Physical Therapy Initial Evaluation PT-OP-A Visit Information Start: 10/04/23 09:44 Freq: Status: Active Protocol: Document 10/04/23 09:44 NM (Rec: 10/04/23 11:43 NM [id number]) Out-Patient Physical Therapy Visit Information Visit Information Visit Type Initial Evaluation Visit Start Time 09:45 Visit Stop Time 10:30 Visit Number 45 Evaluation Information Evaluation Date 10/04/23 Precautions Precautions Osteoporosis (no spinal flexion) PT-OP-B Current Condition Start: 10/04/23 09:44 Freq: Status: Active Protocol: Document 10/04/23 09:44 NM (Rec: 10/04/23 11:43 NM [id number]) Current Condition History of Current Condition Onset Date September 2023 History of Current Condition Pt presents with newly diagnosed osteoporosis without fracture in September 2023. She is normally very active with yoga, line dancing, clogging, hiking, walking, gardening ( heavy landscaping, shoveling, digging), lifting (e.g. hauling cement), kayaking. However, she has limited her activity since her dx in early September due to fear of injury . Hx of stress fracture to R tibia from dance (several decades ago). No other significant PMH or injuries. Reports no changes to balance. No hx of falls or fractures. She has started taking calcium and vitamin D; reports physician gave restrictions of don't bend over, don't twist . She is concerned about being able to participate in her daily or seasonal activities. Prior Treatments and Tests No previous PT; 08/25 DEXA indicates AP spine osteoporosis, osteopenia B femoral necks Treatment Goals Patient/Caregiver Goals Safely exercise, safely continue with ADLs/ recreational, safely be able to nut picker small relatives who live nearby Prior Functional Status Baseline Function- ADL's Independent Baseline Function- Mobility Independent Baseline Function- Recreation/Hobbies Yoga 20-30 min/day; Daily walks 1-2 mi/day and trail walks 1x/wk. Seasonal- gardening, kayaking PT-OP-C Subjective Start: 10/04/23 09:44 Freq: Status: Active Protocol: Document 10/04/23 09:44 NM (Rec: 10/04/23 16:22 NM [id number]) OP-PT Subjective Patient Comments Patient Comments see hx above for pt report OP-PT Pain Assessment Pain Assessment Grid Paper Pain Assessment Grid Completed Yes: No pain reported PT-OP-D Balance Start: 10/04/23 09:44 Freq: Status: Active Protocol: Document 10/04/23 09:44 NM (Rec: 10/04/23 11:43 NM [id number]) OP-PT Balance Assessment Sitting Balance Static Sitting Balance Ability Normal Dynamic Sitting Balance Ability Normal Standing Balance Static Standing Balance Ability Normal Dynamic Standing Balance Ability Normal Device Used none Balance Tests Mendez Balance Test Mendez Balance Test Score 56/56 mCTSIB mCTSIB Position 1 30 seconds eyes open, stable surface; no sway mCTSIB Position 2 30 seconds eyes closed, stable surface; minimal sway, ankle strategy mCTSIB Position 3 30 seconds eyes closed, foam surface; minimal sway, ankle strategy mCTSIB Position 4 30 seconds eyes closed, foam surface; increased sway,no LOB , ankle strategy Romberg Romberg 30 seconds, minimal sway Single Limb Standing Single Limb- Right 30 seconds Single Limb- Left 30 seconds Tandem Tandem Standing 30 seconds ea LE, increased sway Chance Fall Scale Copyright Permission PT-OP-E Functional Tests Start: 10/04/23 09:44 Freq: Status: Active Protocol: Document 10/04/23 09:44 NM (Rec: 10/04/23 11:43 NM [id number]) Functional Tests 30 Second Sit to Stand Test Score 19 Comments demos increased trunk flexion with squat PT-OP-F Manual Assessment Start: 10/04/23 09:44 Freq: Status: Active Protocol: Document 10/04/23 09:44 NM (Rec: 10/04/23 11:43 NM [id number]) Manual Assessments Soft Tissue Assessment Soft Tissue Mobility Assessment Minimal restrictions of hip flexors, hamstrings Joint Mobility Assessment Joint Mobility Assessment Full B hip/knee PROM, lumbar spine AROM PT-OP-G Mobility & Gait Start: 10/04/23 09:44 Freq: Status: Active Protocol: Document 10/04/23 09:44 NM (Rec: 10/04/23 11:43 NM [id number]) OP Gait Assessment Gait Gait Assistance Required: Independent Distance (Feet) 500 Assistive Devices Assistive Device None Gait Deviations General Gait Pattern Within Normal Limits Comments Gait Comments Pt has steady gait, increased gait speed. Good awareness of surroundings Stair Climbing Evaluation Evaluation Level of Assist On Stairs Independent Devices Stair Climbing Assistive Devices None Technique/Endurance Stair Climbing Direction Ascend and Descend Stair Climbing Technique Step Over Step Number of Steps Climbed 4 Stair Climbing Set # Repetitions (reps) 5 Comments Stair Climbing Comments Very quick speed, good balance PT-OP-H Neuro Start: 10/04/23 09:44 Freq: Status: Active Protocol: Document 10/04/23 09:44 NM (Rec: 10/04/23 11:43 NM [id number]) Sensation Evaluation Comments Summary Comments Intact BLE light touch sensation PT-OP-J Posture/Palpation/Skin Start: 10/04/23 09:44 Freq: Status: Active Protocol: Document 10/04/23 09:44 NM (Rec: 10/04/23 11:43 NM [id number]) Posture Evaluation Position Standing Evaluation View Lateral Head/C-Spine Posture Forward Head Shoulder Posture (L) Forward,(R) Forward,(R) Elevated Scapula Posture (L) Protracted,(R) Protracted Pelvis Posture Anteriorly Tilted Weight Distribution Balanced Hip Posture (L) Externally Rotated,(R) Externally Rotated Patellar Posture (L) Superior,(R) Superior Ankle/Foot Posture (L) Forefoot Eversion,(R) Forefoot Eversion PT-OP-K Range of Motion Start: 10/04/23 09:44 Freq: Status: Active Protocol: Document 10/04/23 09:44 NM (Rec: 10/04/23 11:43 NM [id number]) Lumbar Spine Range of Motion Lumbar Spine Active Percentage Testing Position Standing Flexion 100 Extension 100 Rotation Left 100 Rotation Right 100 Lateral Flexion Left 100 Lateral Flexion Right 100 Comments Full AROM, cued straight leg to prevent compensation PT-OP-M Strength Start: 10/04/23 09:44 Freq: Status: Active Protocol: Document 10/04/23 09:44 NM (Rec: 10/04/23 11:43 NM [id number]) Trunk Strength Trunk Manual Muscle Testing Flexion 4 Good Extension 4 Good Rotation Left 5 Normal Rotation Right 5 Normal Lateral Flexion Left 4 Good Lateral Flexion Right 4 Good Comments Trunk flexion resisted motion performed in sitting with pt using upright posture against resistance without increased trunk flexion Hip Strength Hip Manual Muscle Testing Left Flexion (L2) 4+ Good+ Extension (S1) 4- Good- Abduction 4 Good Adduction 4+ Good+ External Rotation 4+ Good+ Internal Rotation 4+ Good+ Right Flexion (L2) 4+ Good+ Extension (S1) 4- Good- Abduction 4 Good Adduction 4+ Good+ External Rotation 4+ Good+ Internal Rotation 4+ Good+ Knee Strength Knee Manual Muscle Testing Left Flexion (S2) 5 Normal Extension (L3) 5 Normal Right Flexion (S2) 5 Normal Extension (L3) 5 Normal Ankle/Foot Strength Ankle and Foot Manual Muscle Testing Left Dorsiflexion (L4) 5 Normal Plantarflexion (S1) 5 Normal Inversion 5 Normal Eversion (S1) 5 Normal Right Dorsiflexion (L4) 5 Normal Plantarflexion (S1) 5 Normal Inversion 5 Normal Eversion (S1) 5 Normal PT-OP-Q Treatments Start: 10/04/23 09:44 Freq: Status: Active Protocol: Document 10/04/23 09:44 NM (Rec: 10/04/23 11:43 NM [id number]) Therapeutic Activity Therapeutic Activity Hip hinge Reps/Minutes 8 min total Comments 1. Hip hinge with staggered stance; 2x10 Pt in staggered stance, hands on hips for tactile cue. Verbal cue to bring hips back or act like you're closing a car door using your bottom, PT initially facilitating at hips to promote hinge. 2. Hip hinge with staggered stance to nut picker elevated object; 1x10 ea LE in front Pt in staggered stance with football placed on 16 surface , hip hinge to nut picker football, then return to upright posture; brief pause, then return football to surface using hip hinge strategy. PT cued pt for slower, controlled motion vs quick movements to limit shear forces at anterior spine 3. Golfer hinge (single leg, post leg elevated) to nut picker object from 16 step; 1x10 ea LE Due to pt preference, pt using single leg to stand while performing hip hinge, 1 UE support prn for balance. Reaching with unsupported hand or both hands for football at lower surface, grabbing, then lifting and return to standing. Reverse Self-Care/Home Management Treatment Education Patient Education Body Mechanics,Home Exercise Program,Joint Protection, Posture,Safety Other Education 8 min: Educated on osteoporosis dx, effect on body. Discussed with pt current activity level, need to activity modification for safety to prevent injury to spine or hips. Stressed importance of continued physical activity, including daily walking. Educated briefly regarding preventing fwd flexed posture, use of hip hinge when bending to prevent load to anterior spine, joint protection with activity (e.g . shoveling and lifting). Instructed no lift without hinge, no fwd flex, no twist without moving body. PT strongly recommended against pt's plan to move heavy tree this weekend for her garden. Issued HEP with hip hinge activity using staggered stance PT-OP-T Assessment and Plan Start: 10/04/23 09:44 Freq: Status: Active Protocol: Document 10/04/23 09:44 NM (Rec: 10/04/23 11:43 NM [id number]) Physical Therapy Assessment Rehab Potential Rehabilitation Potential Excellent Evaluation Complexity Number of Personal Factors/Comorbidities 0 Number of Body Systems Impaired 1-2 Clinical Presentation at Evaluation Stable Impairments Impairments Activity Tolerance,Balance, Coordination,Functional Activities,Functional Mobility ,Gait,Posture,ROM,Soft Tissue Mobility,Strength Goals Five Impairment education Training Developer Goal (LTG) Pt will be provided with at least 3 resources for osteoporosis regarding condition, diet, exercise, activity modification, and safe movement patterns for further education regarding diagnosis and to decrease risk of fracture. LTG Duration 6 weeks Four Impairment trunk extensor strength Training Developer Goal (LTG) Pt will be able to perform at least 10 bilateral bird dogs with good form (stable pelvis) or a modified plank or better for at least 30 seconds in order to demonstrate improved core stability and spinal extensor strength required to prevent forward trunk posture. LTG Duration 6 weeks Three Impairment strength Impairment B hip ext 4-/5, hip abd 4/5 Senior Living Goal (LTG) Pt will improve B hip ext and B hip abd strength to at least 4+/5 in order to demonstrate improved hip strength needed to stabilize pelvis during activity. LTG Duration 6 weeks Two Impairment exercise Impairment Not performing osteoporosis- specific exercise program Short Term Goal (STG) Pt will report compliance with osteoporosis-specific HEP at least 3x/wk in order to demonstrate improved understanding of diagnosis. STG Duration 3 weeks Senior Living Goal (LTG) Pt will report compliance with osteoporosis-specific exercise program at least 3x/ wk for maintainance to maximize gains made during PT. LTG Duration 6 weeks One Impairment body mechanics Short Term Goal (STG) Pt will demonstrate good hip hinge mechanism during bending and lifting for at least 5/10 reps in order to demonstrate improved safety and posture to decrease risk of compression fracture. STG Duration 3 weeks Senior Living Goal (LTG) Pt will demonstrate good body mechanics utilizing hip hinge and limiting spinal flexion when lifting a 10# object from the floor in order to demonstrate improved safety and posture to decrease risk of compression fracture. LTG Duration 6 weeks Assessment Summary Assessment Pt is a 58 y.o. female presenting with newly diagnosed osteoporosis without fracture. Her BMD scores indicate osteoporosis of the spine and osteopenia of the hips. Pt recently began supplementing with vitamin D and calcium. She demonstrates slight forward head and shoulders posture, but no hyperkyphosis. Pt has full lumbar spine and hip/knee AROM . She has limitations in bilateral hip extensor and abductor strength; however, global hip/knee strength 4+ to 5/5. Her 30 sec sit to stand time score is 19 squats; pt demos increased tendency for trunk flexion with poor hip hinge movement. Her Mendez balance test is 56/56, and pt is able to maintain balance during good ankle strategy on both stable and unstable surfaces with changing RAMON and vision. Pt is very active, participating in daily walks and other high intensity recreational activities including kayaking and gardening, which involve increased trunk ROM and lifting. PT educated pt on exam findings and POC, osteoporosis and effect on anatomy, spinal arthokinematics when loaded and flexed, in addition need for safe body mechanics and need for activity modification . PT also instructed pt in hip hinge activity using staggered modified single leg stance. Pt would benefit from skilled PT for further education regarding body mechanics and posture, for creation of spine-safe osteoporosis exercise program, and for safe activity modification to improve bone mineral density and decrease risk of fracture. Physical Therapy Plan Frequency and Duration Frequency of Treatment 1-2/wk Duration of treatment (weeks) 6 Plan of Care Start Date 10/04/23 Plan of Care End Date 11/16/23 Therapeutic Interventions Therapeutic Interventions Aquatic Therapy,Balance Training,Coordination Training ,Gait Training,Home Exercise Program,Joint Mobilizations, Manual Therapy,Neuromuscular Re-education,Orthotic/ Prosthetic Management,Patient/ Caregiver Education,Self-Care/ Home Management,Sensory Integration,Soft Tissue Mobilization,Taping, Therapeutic Activities, Therapeutic Exercises Modalities Cold Pack/Ice Massage,Electric Stimulation,Hot Packs, Ultrasound,Vasopneumatic Devices Other Referrals/Consults Referrals/Consults Recommended Recommend dietary consult to address any limitations in diet and supplements for improved bone health Next Visit Focus/Plan Next Note Type Treatment Note Next Visit Plan Hip hinge, review yoga exercises and make modifications, establish safe osteoporosis exercise regimen. Postural re-education and strengthening. Teach log roll for rolling. HS stretch Review osteoporosis restrictions/anatomy/ physiology, provide handouts POC: body mechanics, posture, spine and hip specific exercise, core and hip ext/ trunk ext strength; create activity regimen
--- NOTE | 2023-10-12 16:42 | PT.OTN ---
Current Diagnoses Age-related osteoporosis without current pathological fracture (10/12/23) Physical Therapy Treatment Note PT-OP-A Visit Information Start: 10/04/23 09:44 Freq: Status: Active Protocol: Document 10/12/23 09:46 NM (Rec: 10/12/23 16:22 NM [id number]) Out-Patient Physical Therapy Visit Information Visit Information Visit Type Treatment Note Visit Start Time 09:46 Visit Stop Time 10:30 Visit Number 2 Evaluation Information Evaluation Date 10/04/23 Precautions Precautions Osteoporosis (no spinal flexion) PT-OP-B Current Condition Start: 10/04/23 09:44 Freq: Status: Active Protocol: Document 10/04/23 09:44 NM (Rec: 10/04/23 11:43 NM [id number]) Current Condition History of Current Condition Onset Date September 2023 History of Current Condition Pt presents with newly diagnosed osteoporosis without fracture in September 2023. She is normally very active with yoga, line dancing, clogging, hiking, walking, gardening ( heavy landscaping, shoveling, digging), lifting (e.g. hauling cement), kayaking. However, she has limited her activity since her dx in early September due to fear of injury . Hx of stress fracture to R tibia from dance (several decades ago). No other significant PMH or injuries. Reports no changes to balance. No hx of falls or fractures. She has started taking calcium and vitamin D; reports physician gave restrictions of don't bend over, don't twist . She is concerned about being able to participate in her daily or seasonal activities. Prior Treatments and Tests No previous PT; 08/25 DEXA indicates AP spine osteoporosis, osteopenia B femoral necks Treatment Goals Patient/Caregiver Goals Safely exercise, safely continue with ADLs/ recreational, safely be able to fruit picker small relatives who live nearby Prior Functional Status Baseline Function- ADL's Independent Baseline Function- Mobility Independent Baseline Function- Recreation/Hobbies Yoga 20-30 min/day; Daily walks 1-2 mi/day and trail walks 1x/wk. Seasonal- gardening, kayaking PT-OP-C Subjective Start: 10/04/23 09:44 Freq: Status: Active Protocol: Document 10/12/23 09:46 NM (Rec: 10/12/23 10:32 NM [id number]) OP-PT Subjective Patient Comments Patient Comments No pain or changes since IE. No change to daily exercise. Continues to walk daily. Has not been doing yoga and has been limiting dancing until she is sure what is safe for her spine. PT-OP-D Balance Start: 10/04/23 09:44 Freq: Status: Active Protocol: Document 10/04/23 09:44 NM (Rec: 10/04/23 11:43 NM [id number]) OP-PT Balance Assessment Sitting Balance Static Sitting Balance Ability Normal Dynamic Sitting Balance Ability Normal Standing Balance Static Standing Balance Ability Normal Dynamic Standing Balance Ability Normal Device Used none Balance Tests Mendez Balance Test Mendez Balance Test Score 56/56 mCTSIB mCTSIB Position 1 30 seconds eyes open, stable surface; no sway mCTSIB Position 2 30 seconds eyes closed, stable surface; minimal sway, ankle strategy mCTSIB Position 3 30 seconds eyes closed, foam surface; minimal sway, ankle strategy mCTSIB Position 4 30 seconds eyes closed, foam surface; increased sway,no LOB , ankle strategy Romberg Romberg 30 seconds, minimal sway Single Limb Standing Single Limb- Right 30 seconds Single Limb- Left 30 seconds Tandem Tandem Standing 30 seconds ea LE, increased sway Chance Fall Scale Copyright Permission PT-OP-E Functional Tests Start: 10/04/23 09:44 Freq: Status: Active Protocol: Document 10/04/23 09:44 NM (Rec: 10/04/23 11:43 NM [id number]) Functional Tests 30 Second Sit to Stand Test Score 19 Comments demos increased trunk flexion with squat PT-OP-F Manual Assessment Start: 10/04/23 09:44 Freq: Status: Active Protocol: Document 10/04/23 09:44 NM (Rec: 10/04/23 11:43 NM [id number]) Manual Assessments Soft Tissue Assessment Soft Tissue Mobility Assessment Minimal restrictions of hip flexors, hamstrings Joint Mobility Assessment Joint Mobility Assessment Full B hip/knee PROM, lumbar spine AROM PT-OP-G Mobility & Gait Start: 10/04/23 09:44 Freq: Status: Active Protocol: Document 10/04/23 09:44 NM (Rec: 10/04/23 11:43 NM [id number]) OP Gait Assessment Gait Gait Assistance Required: Independent Distance (Feet) 500 Assistive Devices Assistive Device None Gait Deviations General Gait Pattern Within Normal Limits Comments Gait Comments Pt has steady gait, increased gait speed. Good awareness of surroundings Stair Climbing Evaluation Evaluation Level of Assist On Stairs Independent Devices Stair Climbing Assistive Devices None Technique/Endurance Stair Climbing Direction Ascend and Descend Stair Climbing Technique Step Over Step Number of Steps Climbed 4 Stair Climbing Set # Repetitions (reps) 5 Comments Stair Climbing Comments Very quick speed, good balance PT-OP-H Neuro Start: 10/04/23 09:44 Freq: Status: Active Protocol: Document 10/04/23 09:44 NM (Rec: 10/04/23 11:43 NM [id number]) Sensation Evaluation Comments Summary Comments Intact BLE light touch sensation PT-OP-J Posture/Palpation/Skin Start: 10/04/23 09:44 Freq: Status: Active Protocol: Document 10/04/23 09:44 NM (Rec: 10/04/23 11:43 NM [id number]) Posture Evaluation Position Standing Evaluation View Lateral Head/C-Spine Posture Forward Head Shoulder Posture (L) Forward,(R) Forward,(R) Elevated Scapula Posture (L) Protracted,(R) Protracted Pelvis Posture Anteriorly Tilted Weight Distribution Balanced Hip Posture (L) Externally Rotated,(R) Externally Rotated Patellar Posture (L) Superior,(R) Superior Ankle/Foot Posture (L) Forefoot Eversion,(R) Forefoot Eversion PT-OP-K Range of Motion Start: 10/04/23 09:44 Freq: Status: Active Protocol: Document 10/04/23 09:44 NM (Rec: 10/04/23 11:43 NM [id number]) Lumbar Spine Range of Motion Lumbar Spine Active Percentage Testing Position Standing Flexion 100 Extension 100 Rotation Left 100 Rotation Right 100 Lateral Flexion Left 100 Lateral Flexion Right 100 Comments Full AROM, cued straight leg to prevent compensation PT-OP-M Strength Start: 10/04/23 09:44 Freq: Status: Active Protocol: Document 10/04/23 09:44 NM (Rec: 10/04/23 11:43 NM [id number]) Trunk Strength Trunk Manual Muscle Testing Flexion 4 Good Extension 4 Good Rotation Left 5 Normal Rotation Right 5 Normal Lateral Flexion Left 4 Good Lateral Flexion Right 4 Good Comments Trunk flexion resisted motion performed in sitting with pt using upright posture against resistance without increased trunk flexion Hip Strength Hip Manual Muscle Testing Left Flexion (L2) 4+ Good+ Extension (S1) 4- Good- Abduction 4 Good Adduction 4+ Good+ External Rotation 4+ Good+ Internal Rotation 4+ Good+ Right Flexion (L2) 4+ Good+ Extension (S1) 4- Good- Abduction 4 Good Adduction 4+ Good+ External Rotation 4+ Good+ Internal Rotation 4+ Good+ Knee Strength Knee Manual Muscle Testing Left Flexion (S2) 5 Normal Extension (L3) 5 Normal Right Flexion (S2) 5 Normal Extension (L3) 5 Normal Ankle/Foot Strength Ankle and Foot Manual Muscle Testing Left Dorsiflexion (L4) 5 Normal Plantarflexion (S1) 5 Normal Inversion 5 Normal Eversion (S1) 5 Normal Right Dorsiflexion (L4) 5 Normal Plantarflexion (S1) 5 Normal Inversion 5 Normal Eversion (S1) 5 Normal PT-OP-Q Treatments Start: 10/04/23 09:44 Freq: Status: Active Protocol: Document 10/12/23 09:46 NM (Rec: 10/12/23 10:32 NM [id number]) Therapeutic Exercises Sitting Exercises hip abduction Sitting Exercise Name cables Resistance lvl 4 (40#) Reps/Minutes 2x10 Comments cued for form, monitored for pain HSC Side bilateral Resistance lvl 4 cable (40#) Reps/Minutes 2x10 Comments cued for form, monitored for pain LAQ Side bilateral Resistance lvl 4 cable (40#) Reps/Minutes 2x10 Comments cued for form, monitored for pain Standing Exercises squat Standing Exercise Name to chair with hip hinge emphasis Side bilateral Resistance lvl 4 band around thighs Equipment Used chair behind for target Reps/Minutes 2x10 Comments cued for hip hinge, does not demo trunk flex with squat wall posture Side bilateral Resistance AROM Reps/Minutes 1x10 with 3 hold Comments cued for chin tuck, trunk elongation side steps Side bilateral Resistance lvl 4 blue tb around thighs Reps/Minutes 2 sets x 20 ft Comments cue for slight hip hinge,knee flex but no trunk flex Therapeutic Activity Therapeutic Activity Hip hinge Reps/Minutes 8 min total Comments 1. B equal leg, 1x10 2. staggered ea direction, 1x10 ea direction 3. with foam roller at knee against wall, 1x5 Self-Care/Home Management Treatment Education Patient Education Body Mechanics,Fall Risk,Home Exercise Program,Joint Protection,Posture,Safety Caregiver Education Height measurement (baseline): 62.5 Other Education 16 minutes @ beginning and throughout session: Education (and handouts issued) regarding safe/unsafe yoga poses/pilates poses; discussed no twisting of spine with dancing, limit twisting of pelvis (hips ok as long as spine not twisting), minimize trunk flexion and use hip hinge when bending or lifting. Educated regarding importance of safe, loaded exercise to maintain or improve bone density levels; sitting ergonomics, safety during hiking (avoiding falls). Discussed importance of posture to decrease fracture risk. Depending on whether pt agrees to join gym for weight lifting, HEP issued with bands in meantime: seated hip abd, side steps, LAQ, HSC, goblet squat with hip hinge. PT-OP-T Assessment and Plan Start: 10/04/23 09:44 Freq: Status: Active Protocol: Document 10/12/23 09:46 NM (Rec: 10/12/23 10:32 NM [id number]) Physical Therapy Assessment Goals Five Impairment education [facility] Goal (LTG) Pt will be provided with at least 3 resources for osteoporosis regarding condition, diet, exercise, activity modification, and safe movement patterns for further education regarding diagnosis and to decrease risk of fracture. 10/12/23: MET- pt provided with handouts, websites, videos, and other resources from various national osteoporosis groups regarding above information LTG Duration 6 weeks Four Impairment trunk extensor strength [facility] Goal (LTG) Pt will be able to perform at least 10 bilateral bird dogs with good form (stable pelvis) or a modified plank or better for at least 30 seconds in order to demonstrate improved core stability and spinal extensor strength required to prevent forward trunk posture. LTG Duration 6 weeks Three Impairment strength Impairment B hip ext 4-/5, hip abd 4/5 Turbine Blade Assembler Goal (LTG) Pt will improve B hip ext and B hip abd strength to at least 4+/5 in order to demonstrate improved hip strength needed to stabilize pelvis during activity. LTG Duration 6 weeks Two Impairment exercise Impairment Not performing osteoporosis- specific exercise program Short Term Goal (STG) Pt will report compliance with osteoporosis-specific HEP at least 3x/wk in order to demonstrate improved understanding of diagnosis. STG Duration 3 weeks Turbine Blade Assembler Goal (LTG) Pt will report compliance with osteoporosis-specific exercise program at least 3x/ wk for maintainance to maximize gains made during PT. LTG Duration 6 weeks One Impairment body mechanics Short Term Goal (STG) Pt will demonstrate good hip hinge mechanism during bending and lifting for at least 5/10 reps in order to demonstrate improved safety and posture to decrease risk of compression fracture. STG Duration 3 weeks Turbine Blade Assembler Goal (LTG) Pt will demonstrate good body mechanics utilizing hip hinge and limiting spinal flexion when lifting a 10# object from the floor in order to demonstrate improved safety and posture to decrease risk of compression fracture. LTG Duration 6 weeks Assessment Summary Assessment Pt tolerated treatment well. Majority of session spent on educating pt about current exercise program, initiation of weight training, safe exercises, posture, and activity modification. Provided several handouts with safe/unsafe exercise names/ photos and issued bands for HEP. Review hip hinge and added additional tactile cue of foam roller to promote improved hinge for ADLs. Pt demos good hinge without rounding trunk when bending as if to fruit picker object. Initiated both weight resistance loading and resistance band based exercise program to target strengthening B hips, quads, and hamstrings. PT and pt discussed importance of weight bearing exercise for bone density in addition to her normal daily exercise; dicussed possibility of pt getting gym membership for access to weights, but will discuss further as pt progresses. Pt demos slight forward head posture, so initiated standing wall posture with education regarding increased fracture risk depending on pt forward positioning. Pt would benefit from skilled PT to address osteoporosis related strengthening, postural education, and safe activity modification in order for pt to maintain active lifestyle and decrease fracture risk. Physical Therapy Plan Frequency and Duration Frequency of Treatment 1-2/wk Duration of treatment (weeks) 6 Plan of Care Start Date 10/04/23 Plan of Care End Date 11/16/23 Therapeutic Interventions Therapeutic Interventions Aquatic Therapy,Balance Training,Coordination Training ,Gait Training,Home Exercise Program,Joint Mobilizations, Manual Therapy,Neuromuscular Re-education,Orthotic/ Prosthetic Management,Patient/ Caregiver Education,Self-Care/ Home Management,Sensory Integration,Soft Tissue Mobilization,Taping, Therapeutic Activities, Therapeutic Exercises Modalities Cold Pack/Ice Massage,Electric Stimulation,Hot Packs, Ultrasound,Vasopneumatic Devices Other Referrals/Consults Referrals/Consults Recommended Recommend dietary consult to address any limitations in diet and supplements for improved bone health Next Visit Focus/Plan Next Note Type Treatment Note Next Visit Plan Hip hinge, review yoga exercises and make modifications, establish safe osteoporosis exercise regimen. Postural re-education and strengthening. Teach log roll for rolling. HS stretch Review osteoporosis restrictions/anatomy/ physiology, provide handouts, PF Next session: flexibility ( safe stretches), weights, how to fruit picker child, posture, trunk ext POC: body mechanics, posture, spine and hip specific exercise, core and hip ext/ trunk ext strength; create activity regimen
--- NOTE | 2023-10-16 16:22 | PT.OTN ---
Current Diagnoses Age-related osteoporosis without current pathological fracture (10/16/23) Physical Therapy Treatment Note PT-OP-A Visit Information Start: 10/04/23 09:44 Freq: Status: Active Protocol: Document 10/16/23 09:48 NM (Rec: 10/16/23 10:30 NM [id number]) Out-Patient Physical Therapy Visit Information Visit Information Visit Type Treatment Note Visit Start Time 09:48 Visit Stop Time 10:30 Visit Number 3 Evaluation Information Evaluation Date 10/04/23 PT-OP-B Current Condition Start: 10/04/23 09:44 Freq: Status: Active Protocol: Document 10/04/23 09:44 NM (Rec: 10/04/23 11:43 NM [id number]) Current Condition History of Current Condition Onset Date September 2023 History of Current Condition Pt presents with newly diagnosed osteoporosis without fracture in September 2023. She is normally very active with yoga, line dancing, clogging, hiking, walking, gardening ( heavy landscaping, shoveling, digging), lifting (e.g. hauling cement), kayaking. However, she has limited her activity since her dx in early September due to fear of injury . Hx of stress fracture to R tibia from dance (several decades ago). No other significant PMH or injuries. Reports no changes to balance. No hx of falls or fractures. She has started taking calcium and vitamin D; reports physician gave restrictions of don't bend over, don't twist . She is concerned about being able to participate in her daily or seasonal activities. Prior Treatments and Tests No previous PT; 08/25 DEXA indicates AP spine osteoporosis, osteopenia B femoral necks Treatment Goals Patient/Caregiver Goals Safely exercise, safely continue with ADLs/ recreational, safely be able to pickling grader small relatives who live nearby Prior Functional Status Baseline Function- ADL's Independent Baseline Function- Mobility Independent Baseline Function- Recreation/Hobbies Yoga 20-30 min/day; Daily walks 1-2 mi/day and trail walks 1x/wk. Seasonal- gardening, kayaking PT-OP-C Subjective Start: 10/04/23 09:44 Freq: Status: Active Protocol: Document 10/16/23 09:48 NM (Rec: 10/16/23 10:30 NM [id number]) OP-PT Subjective Patient Comments Patient Comments No changes since last session. Difficulty with LAW, but has ankle weights so will try that next time. PT-OP-D Balance Start: 10/04/23 09:44 Freq: Status: Active Protocol: Document 10/04/23 09:44 NM (Rec: 10/04/23 11:43 NM [id number]) OP-PT Balance Assessment Sitting Balance Static Sitting Balance Ability Normal Dynamic Sitting Balance Ability Normal Standing Balance Static Standing Balance Ability Normal Dynamic Standing Balance Ability Normal Device Used none Balance Tests Mendez Balance Test Mendez Balance Test Score 56/56 mCTSIB mCTSIB Position 1 30 seconds eyes open, stable surface; no sway mCTSIB Position 2 30 seconds eyes closed, stable surface; minimal sway, ankle strategy mCTSIB Position 3 30 seconds eyes closed, foam surface; minimal sway, ankle strategy mCTSIB Position 4 30 seconds eyes closed, foam surface; increased sway,no LOB , ankle strategy Romberg Romberg 30 seconds, minimal sway Single Limb Standing Single Limb- Right 30 seconds Single Limb- Left 30 seconds Tandem Tandem Standing 30 seconds ea LE, increased sway Chance Fall Scale Copyright Permission PT-OP-E Functional Tests Start: 10/04/23 09:44 Freq: Status: Active Protocol: Document 10/04/23 09:44 NM (Rec: 10/04/23 11:43 NM [id number]) Functional Tests 30 Second Sit to Stand Test Score 19 Comments demos increased trunk flexion with squat PT-OP-F Manual Assessment Start: 10/04/23 09:44 Freq: Status: Active Protocol: Document 10/04/23 09:44 NM (Rec: 10/04/23 11:43 NM [id number]) Manual Assessments Soft Tissue Assessment Soft Tissue Mobility Assessment Minimal restrictions of hip flexors, hamstrings Joint Mobility Assessment Joint Mobility Assessment Full B hip/knee PROM, lumbar spine AROM PT-OP-G Mobility & Gait Start: 10/04/23 09:44 Freq: Status: Active Protocol: Document 10/04/23 09:44 NM (Rec: 10/04/23 11:43 NM [id number]) OP Gait Assessment Gait Gait Assistance Required: Independent Distance (Feet) 500 Assistive Devices Assistive Device None Gait Deviations General Gait Pattern Within Normal Limits Comments Gait Comments Pt has steady gait, increased gait speed. Good awareness of surroundings Stair Climbing Evaluation Evaluation Level of Assist On Stairs Independent Devices Stair Climbing Assistive Devices None Technique/Endurance Stair Climbing Direction Ascend and Descend Stair Climbing Technique Step Over Step Number of Steps Climbed 4 Stair Climbing Set # Repetitions (reps) 5 Comments Stair Climbing Comments Very quick speed, good balance PT-OP-H Neuro Start: 10/04/23 09:44 Freq: Status: Active Protocol: Document 10/04/23 09:44 NM (Rec: 10/04/23 11:43 NM [id number]) Sensation Evaluation Comments Summary Comments Intact BLE light touch sensation PT-OP-J Posture/Palpation/Skin Start: 10/04/23 09:44 Freq: Status: Active Protocol: Document 10/04/23 09:44 NM (Rec: 10/04/23 11:43 NM [id number]) Posture Evaluation Position Standing Evaluation View Lateral Head/C-Spine Posture Forward Head Shoulder Posture (L) Forward,(R) Forward,(R) Elevated Scapula Posture (L) Protracted,(R) Protracted Pelvis Posture Anteriorly Tilted Weight Distribution Balanced Hip Posture (L) Externally Rotated,(R) Externally Rotated Patellar Posture (L) Superior,(R) Superior Ankle/Foot Posture (L) Forefoot Eversion,(R) Forefoot Eversion PT-OP-K Range of Motion Start: 10/04/23 09:44 Freq: Status: Active Protocol: Document 10/04/23 09:44 NM (Rec: 10/04/23 11:43 NM [id number]) Lumbar Spine Range of Motion Lumbar Spine Active Percentage Testing Position Standing Flexion 100 Extension 100 Rotation Left 100 Rotation Right 100 Lateral Flexion Left 100 Lateral Flexion Right 100 Comments Full AROM, cued straight leg to prevent compensation PT-OP-M Strength Start: 10/04/23 09:44 Freq: Status: Active Protocol: Document 10/04/23 09:44 NM (Rec: 10/04/23 11:43 NM [id number]) Trunk Strength Trunk Manual Muscle Testing Flexion 4 Good Extension 4 Good Rotation Left 5 Normal Rotation Right 5 Normal Lateral Flexion Left 4 Good Lateral Flexion Right 4 Good Comments Trunk flexion resisted motion performed in sitting with pt using upright posture against resistance without increased trunk flexion Hip Strength Hip Manual Muscle Testing Left Flexion (L2) 4+ Good+ Extension (S1) 4- Good- Abduction 4 Good Adduction 4+ Good+ External Rotation 4+ Good+ Internal Rotation 4+ Good+ Right Flexion (L2) 4+ Good+ Extension (S1) 4- Good- Abduction 4 Good Adduction 4+ Good+ External Rotation 4+ Good+ Internal Rotation 4+ Good+ Knee Strength Knee Manual Muscle Testing Left Flexion (S2) 5 Normal Extension (L3) 5 Normal Right Flexion (S2) 5 Normal Extension (L3) 5 Normal Ankle/Foot Strength Ankle and Foot Manual Muscle Testing Left Dorsiflexion (L4) 5 Normal Plantarflexion (S1) 5 Normal Inversion 5 Normal Eversion (S1) 5 Normal Right Dorsiflexion (L4) 5 Normal Plantarflexion (S1) 5 Normal Inversion 5 Normal Eversion (S1) 5 Normal PT-OP-Q Treatments Start: 10/04/23 09:44 Freq: Status: Active Protocol: Document 10/16/23 09:48 NM (Rec: 10/16/23 10:30 NM [id number]) Therapeutic Exercises Supine Exercises Figure 4 Supine Exercise Name knees to chest Side bilateral Equipment Used mat on floor Reps/Minutes 1x30 Comments back flat so minimal spinal flex hamstring stretch Supine Exercise Name holding leg with hands, hip at 90 deg Side bilateral Equipment Used mat on floor Reps/Minutes 1x30 ea Comments cued for form, use hands for LE support Prone Exercises spinal extension Prone Exercise Name 1. superman, 2. skydiver Side bilateral Resistance AROM Equipment Used mat on floor Reps/Minutes 1x10 with 3 hold ea Comments cued for mid ROM; difficult but able to perform bird dog Prone Exercise Name 1. arms only, 2. legs only Side bilateral Resistance AROM Equipment Used mat on floor Reps/Minutes 1x10 ea Comments cued for stable pelvis; PT stab at hips L>R Standing Exercises Lunge Standing Exercise Name 1. fwd lunge, 2. lateral lunge Side bilateral Resistance AROM Equipment Used reports L more difficult than R Reps/Minutes 2x10 ea Comments cued no fwd trunk lean, minimize trail leg hip ER wall posture Side bilateral Resistance AROM Reps/Minutes 3 hold, 1 min total Comments cued for chin tuck, trunk elongation Other Exercises Hip flexor stretch Other Exercise Name 1/2 kneel Side bilateral Equipment Used mat on floor Reps/Minutes 1x30 Comments cued form, reports good stretch; cued hip hinge Therapeutic Activity Therapeutic Activity 1/2 kneel pickling grader Reps/Minutes 1x10 total Comments Using hip hinge and half kneel , pt moving from standing to floor into half kneel on mat, to pickling grader 10# ball, 1x5 ea side. No hand support with R side to stand, but requires hand support for balance on L side to stand. 10# theraball is elevated on 8 step to simulate pick child up from floor Log roll Reps/Minutes 1 rep ea direction Comments Using mat on floor, PT educated pt on logroll, then demonstrated. Pt then demonstrated log roll using ipsi hand and knee roll simultaneously,1 rep ea direction. Cued no spinal twisting, Hip hinge Comments 1. B equal leg, 1x10 as warm up 2. during 09/04 kneel Self-Care/Home Management Treatment Education Patient Education Home Exercise Program Other Education 7 minutes: Educated on stretching for flexibility without rotating spine. Educated on log roll for spine safety. HEP: lunges, hamstring stretch, supine figure 4 stretch, hip flexor stretch, abdominal bracing log roll, lateral lunge, wall posture, skydiver and superman . Pt instructed that this is a list of safe exercises to perform 3x/wk, can choose which ones to do. Educated on safe lifting for child, objects from floor in 09/04 kneel PT-OP-T Assessment and Plan Start: 10/04/23 09:44 Freq: Status: Active Protocol: Document 10/16/23 09:48 NM (Rec: 10/16/23 10:30 NM [id number]) Physical Therapy Assessment Goals Five Impairment education Emergency Room Tech Goal (LTG) Pt will be provided with at least 3 resources for osteoporosis regarding condition, diet, exercise, activity modification, and safe movement patterns for further education regarding diagnosis and to decrease risk of fracture. 10/12/23: MET- pt provided with handouts, websites, videos, and other resources from various national osteoporosis groups regarding above information LTG Duration 6 weeks Four Impairment trunk extensor strength Care Home Goal (LTG) Pt will be able to perform at least 10 bilateral bird dogs with good form (stable pelvis) or a modified plank or better for at least 30 seconds in order to demonstrate improved core stability and spinal extensor strength required to prevent forward trunk posture. LTG Duration 6 weeks Three Impairment strength Impairment B hip ext 4-/5, hip abd 4/5 Care Home Goal (LTG) Pt will improve B hip ext and B hip abd strength to at least 4+/5 in order to demonstrate improved hip strength needed to stabilize pelvis during activity. LTG Duration 6 weeks Two Impairment exercise Impairment Not performing osteoporosis- specific exercise program Short Term Goal (STG) Pt will report compliance with osteoporosis-specific HEP at least 3x/wk in order to demonstrate improved understanding of diagnosis. STG Duration 3 weeks Care Home Goal (LTG) Pt will report compliance with osteoporosis-specific exercise program at least 3x/ wk for maintainance to maximize gains made during PT. LTG Duration 6 weeks One Impairment body mechanics Short Term Goal (STG) Pt will demonstrate good hip hinge mechanism during bending and lifting for at least 5/10 reps in order to demonstrate improved safety and posture to decrease risk of compression fracture. STG Duration 3 weeks Emergency Room Tech Goal (LTG) Pt will demonstrate good body mechanics utilizing hip hinge and limiting spinal flexion when lifting a 10# object from the floor in order to demonstrate improved safety and posture to decrease risk of compression fracture. LTG Duration 6 weeks Assessment Summary Assessment Pt tolerated session well. Session spent educating pt on safe body mechanics and initiating safe weight bearing exercises. Initiated spinal extensor strengthening. PT cued pt for pelvic stability during bird dog, did not begin coordinating BUE/BLE yet due to lack of control. Continued with wall posture for trunk and posterior chain lengthening. Pt with good hip hinge form during exercises. Pt has more difficulty with LLE than RLE. Pt would benefit from skilled PT for safe exercise, weight bearing strengthening, and postural and body mechanics education/ activities to decrease fracture risk and improve QOL. Physical Therapy Plan Frequency and Duration Frequency of Treatment 1-2/wk Duration of treatment (weeks) 6 Plan of Care Start Date 10/04/23 Plan of Care End Date 11/16/23 Therapeutic Interventions Therapeutic Interventions Aquatic Therapy,Balance Training,Coordination Training ,Gait Training,Home Exercise Program,Joint Mobilizations, Manual Therapy,Neuromuscular Re-education,Orthotic/ Prosthetic Management,Patient/ Caregiver Education,Self-Care/ Home Management,Sensory Integration,Soft Tissue Mobilization,Taping, Therapeutic Activities, Therapeutic Exercises Modalities Cold Pack/Ice Massage,Electric Stimulation,Hot Packs, Ultrasound,Vasopneumatic Devices Other Referrals/Consults Referrals/Consults Recommended Recommend dietary consult to address any limitations in diet and supplements for improved bone health Next Visit Focus/Plan Next Note Type Treatment Note Next Visit Plan Hip hinge establish safe osteoporosis exercise regimen. Postural re-education and strengthening. Teach log roll for rolling. HS stretch, PF, trunk extensor strengthening, rows, shoulder exercises (no overhead lifting) POC: body mechanics, posture, spine and hip specific exercise, core and hip ext/ trunk ext strength; create activity regimen spine ext, rows
--- NOTE | 2023-10-18 10:53 | PT.OTN ---
Current Diagnoses Age-related osteoporosis without current pathological fracture (10/18/23) Physical Therapy Treatment Note PT-OP-A Visit Information Start: 10/04/23 09:44 Freq: Status: Active Protocol: Document 10/18/23 09:48 NM (Rec: 10/18/23 10:30 NM [id number]) Out-Patient Physical Therapy Visit Information Visit Information Visit Type Treatment Note Visit Start Time 09:46 Visit Stop Time 10:30 Visit Number 4 Evaluation Information Evaluation Date 10/04/23 PT-OP-B Current Condition Start: 10/04/23 09:44 Freq: Status: Active Protocol: Document 10/04/23 09:44 NM (Rec: 10/04/23 11:43 NM [id number]) Current Condition History of Current Condition Onset Date September 2023 History of Current Condition Pt presents with newly diagnosed osteoporosis without fracture in September 2023. She is normally very active with yoga, line dancing, clogging, hiking, walking, gardening ( heavy landscaping, shoveling, digging), lifting (e.g. hauling cement), kayaking. However, she has limited her activity since her dx in early September due to fear of injury . Hx of stress fracture to R tibia from dance (several decades ago). No other significant PMH or injuries. Reports no changes to balance. No hx of falls or fractures. She has started taking calcium and vitamin D; reports physician gave restrictions of don't bend over, don't twist . She is concerned about being able to participate in her daily or seasonal activities. 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 Seasonal- gardening, kayaking PT-OP-C Subjective Start: 10/04/23 09:44 Freq: Status: Active Protocol: Document 10/18/23 09:48 NM (Rec: 10/18/23 10:30 NM [id number]) OP-PT Subjective Patient Comments Patient Comments Pt reports that her thighs are sore after last session. She has been compliant with HEP. Still performing daily walks. PT-OP-D Balance Start: 10/04/23 09:44 Freq: Status: Active Protocol: Document 10/04/23 09:44 NM (Rec: 10/04/23 11:43 NM [id number]) OP-PT Balance Assessment Sitting Balance Static Sitting Balance Ability Normal Dynamic Sitting Balance Ability Normal Standing Balance Static Standing Balance Ability Normal Dynamic Standing Balance Ability Normal Device Used none Balance Tests Mendez Balance Test Mendez Balance Test Score 56/56 mCTSIB mCTSIB Position 1 30 seconds eyes open, stable surface; no sway mCTSIB Position 2 30 seconds eyes closed, stable surface; minimal sway, ankle strategy mCTSIB Position 3 30 seconds eyes closed, foam surface; minimal sway, ankle strategy mCTSIB Position 4 30 seconds eyes closed, foam surface; increased sway,no LOB , ankle strategy Romberg Romberg 30 seconds, minimal sway Single Limb Standing Single Limb- Right 30 seconds Single Limb- Left 30 seconds Tandem Tandem Standing 30 seconds ea LE, increased sway Chance Fall Scale Copyright Permission PT-OP-E Functional Tests Start: 10/04/23 09:44 Freq: Status: Active Protocol: Document 10/04/23 09:44 NM (Rec: 10/04/23 11:43 NM [id number]) Functional Tests 30 Second Sit to Stand Test Score 19 Comments demos increased trunk flexion with squat PT-OP-F Manual Assessment Start: 10/04/23 09:44 Freq: Status: Active Protocol: Document 10/04/23 09:44 NM (Rec: 10/04/23 11:43 NM [id number]) Manual Assessments Soft Tissue Assessment Soft Tissue Mobility Assessment Minimal restrictions of hip flexors, hamstrings Joint Mobility Assessment Joint Mobility Assessment Full B hip/knee PROM, lumbar spine AROM PT-OP-G Mobility & Gait Start: 10/04/23 09:44 Freq: Status: Active Protocol: Document 10/04/23 09:44 NM (Rec: 10/04/23 11:43 NM [id number]) OP Gait Assessment Gait Gait Assistance Required: Independent Distance (Feet) 500 Assistive Devices Assistive Device None Gait Deviations General Gait Pattern Within Normal Limits Comments Gait Comments Pt has steady gait, increased gait speed. Good awareness of surroundings Stair Climbing Evaluation Evaluation Level of Assist On Stairs Independent Devices Stair Climbing Assistive Devices None Technique/Endurance Stair Climbing Direction Ascend and Descend Stair Climbing Technique Step Over Step Number of Steps Climbed 4 Stair Climbing Set # Repetitions (reps) 5 Comments Stair Climbing Comments Very quick speed, good balance PT-OP-H Neuro Start: 10/04/23 09:44 Freq: Status: Active Protocol: Document 10/04/23 09:44 NM (Rec: 10/04/23 11:43 NM [id number]) Sensation Evaluation Comments Summary Comments Intact BLE light touch sensation PT-OP-J Posture/Palpation/Skin Start: 10/04/23 09:44 Freq: Status: Active Protocol: Document 10/04/23 09:44 NM (Rec: 10/04/23 11:43 NM [id number]) Posture Evaluation Position Standing Evaluation View Lateral Head/C-Spine Posture Forward Head Shoulder Posture (L) Forward,(R) Forward,(R) Elevated Scapula Posture (L) Protracted,(R) Protracted Pelvis Posture Anteriorly Tilted Weight Distribution Balanced Hip Posture (L) Externally Rotated,(R) Externally Rotated Patellar Posture (L) Superior,(R) Superior Ankle/Foot Posture (L) Forefoot Eversion,(R) Forefoot Eversion PT-OP-K Range of Motion Start: 10/04/23 09:44 Freq: Status: Active Protocol: Document 10/04/23 09:44 NM (Rec: 10/04/23 11:43 NM [id number]) Lumbar Spine Range of Motion Lumbar Spine Active Percentage Testing Position Standing Flexion 100 Extension 100 Rotation Left 100 Rotation Right 100 Lateral Flexion Left 100 Lateral Flexion Right 100 Comments Full AROM, cued straight leg to prevent compensation PT-OP-M Strength Start: 10/04/23 09:44 Freq: Status: Active Protocol: Document 10/04/23 09:44 NM (Rec: 10/04/23 11:43 NM [id number]) Trunk Strength Trunk Manual Muscle Testing Flexion 4 Good Extension 4 Good Rotation Left 5 Normal Rotation Right 5 Normal Lateral Flexion Left 4 Good Lateral Flexion Right 4 Good Comments Trunk flexion resisted motion performed in sitting with pt using upright posture against resistance without increased trunk flexion Hip Strength Hip Manual Muscle Testing Left Flexion (L2) 4+ Good+ Extension (S1) 4- Good- Abduction 4 Good Adduction 4+ Good+ External Rotation 4+ Good+ Internal Rotation 4+ Good+ Right Flexion (L2) 4+ Good+ Extension (S1) 4- Good- Abduction 4 Good Adduction 4+ Good+ External Rotation 4+ Good+ Internal Rotation 4+ Good+ Knee Strength Knee Manual Muscle Testing Left Flexion (S2) 5 Normal Extension (L3) 5 Normal Right Flexion (S2) 5 Normal Extension (L3) 5 Normal Ankle/Foot Strength Ankle and Foot Manual Muscle Testing Left Dorsiflexion (L4) 5 Normal Plantarflexion (S1) 5 Normal Inversion 5 Normal Eversion (S1) 5 Normal Right Dorsiflexion (L4) 5 Normal Plantarflexion (S1) 5 Normal Inversion 5 Normal Eversion (S1) 5 Normal PT-OP-Q Treatments Start: 10/04/23 09:44 Freq: Status: Active Protocol: Document 10/18/23 09:48 NM (Rec: 10/18/23 10:30 NM [id number]) Cardio Equipment Elliptical Duration (Minutes) 5 Resistance 0 Other warm up, reciprocal motion without excess trunk rotation Therapeutic Exercises Prone Exercises plank Prone Exercise Name 1. full plank, 2. full plank with hip ext Side bilateral Equipment Used mat on floor Reps/Minutes 1. 1x15, 1x30, 2. 1x10 ea side Comments cued core stab, lower butt from air spinal extension Prone Exercise Name 1. superman, 2. skydiver Side bilateral Resistance AROM Equipment Used mat on floor Reps/Minutes 1x15 with 3 hold ea Comments cued for mid ROM; less difficulty bird dog Prone Exercise Name alt arms and legs Side bilateral Resistance AROM Equipment Used mat on floor Reps/Minutes 2x5 ea side Comments cued stable pelvis; PT prn facilitate at hips to prevent rot Sidelying Exercises side plank Sidelying Exercise Name modified side plank (knees), straight arm Side bilateral Equipment Used self tactile cue of hand on hip to prevent twisting Reps/Minutes 2x10 ea (progress as able) Comments cued to bring knees back for spine alignment; edu no twisting Standing Exercises Theraband arms Standing Exercise Name 1. rows, 2. shoulder ext, 3. lat pull down- progress to cables if good form Side bilateral Resistance lvl 5 purple tb Reps/Minutes 2x10 ea Comments cued for scap setting and retraction, upright posture, slower reps Arm Circuit Standing Exercise Name 1. bicep curls, 2. front raise , 3. lateral raise, 4. skull crusher operator supine Resistance 1. 8# db, 2-4. 2# db Equipment Used mirror for visual cues Reps/Minutes 2x10 ea Comments cued for form, upright posture . edu if lean fwd then wt too heavy Time Loaded Standing Standing Exercise Name trialed for time: arms at 90 deg FF, no back support Side bilateral Resistance 2# db ea hand Reps/Minutes 2 minutes Comments cued and encouraged to prevent arms drop; hard, arms shake Self-Care/Home Management Treatment Education Patient Education Body Mechanics,Home Exercise Program,Joint Protection, Posture Other Education 5 minutes: Educated on additional exercises for HEP. Instructed pt to choose several exercises (not all) to perform 2-3x/wk during current episode of care, then 3-4x/wk (at least 1 day as arm day). Educated pt on body mechanics during exercises, no fwd leaning triceps or other UE exercises; no overhead lifting due to increased risk of fracture, if resistance makes pt lean lean forward at trunk or compensate, then resistance is too heavy and to reduce load. Pt verbalizes understanding. Educated regarding importance of postural muscle strengthening PT-OP-T Assessment and Plan Start: 10/04/23 09:44 Freq: Status: Active Protocol: Document 10/18/23 09:48 NM (Rec: 10/18/23 10:30 NM [id number]) Physical Therapy Assessment Goals Five Impairment education Assisted Goal (LTG) Pt will be provided with at least 3 resources for osteoporosis regarding condition, diet, exercise, activity modification, and safe movement patterns for further education regarding diagnosis and to decrease risk of fracture. 10/12/23: MET- pt provided with handouts, websites, videos, and other resources from various national osteoporosis groups regarding above information LTG Duration 6 weeks Four Impairment trunk extensor strength Assisted Goal (LTG) Pt will be able to perform at least 10 bilateral bird dogs with good form (stable pelvis) or a modified plank or better for at least 30 seconds in order to demonstrate improved core stability and spinal extensor strength required to prevent forward trunk posture. LTG Duration 6 weeks Three Impairment strength Impairment B hip ext 4-/5, hip abd 4/5 Assisted Goal (LTG) Pt will improve B hip ext and B hip abd strength to at least 4+/5 in order to demonstrate improved hip strength needed to stabilize pelvis during activity. LTG Duration 6 weeks Two Impairment exercise Impairment Not performing osteoporosis- specific exercise program Short Term Goal (STG) Pt will report compliance with osteoporosis-specific HEP at least 3x/wk in order to demonstrate improved understanding of diagnosis. 10/18/23: Pt compliant with HEP 3x/wk, choosing which exercises to do ea day STG Duration 3 weeks MET News Camera Person Goal (LTG) Pt will report compliance with osteoporosis-specific exercise program at least 3x/ wk for maintainance to maximize gains made during PT. LTG Duration 6 weeks One Impairment body mechanics Short Term Goal (STG) Pt will demonstrate good hip hinge mechanism during bending and lifting for at least 5/10 reps in order to demonstrate improved safety and posture to decrease risk of compression fracture. STG Duration 3 weeks Assisted Goal (LTG) Pt will demonstrate good body mechanics utilizing hip hinge and limiting spinal flexion when lifting a 10# object from the floor in order to demonstrate improved safety and posture to decrease risk of compression fracture. LTG Duration 6 weeks Assessment Summary Assessment Continued with postural exercises, especially spinal extensor strengthening for increased trunk and core support. PT instructed pt to progress up to 5 holds in future HEP as able. Initiated full bird dogs, pt able to coordinate without difficulty; PT using tactile cues at hips to prevent rotation initially but pt demos improved stability with reps. Progressed to planks, planks with hip ext, and side planks for further safe core and hip strengthening; most difficulty with side planks (modified). Initiated safe UE exercises using low level resistance. Pt educated to avoid overhead lifting and too heavy of resistance in order to decrease fracture risk and anterior vertebral strain. Added postural UE/spinal extensor/periscapular strengthening exercises for postural re-education. PT initially with tactile and verbal cues for scapular control, but pt demos improvements with repetitions. Cued consistently for slower motions and for improved biomechanics control. Depending on pt tolerance, progress to cables in future sessions. HEP issued with additional osteoporosis-safe, weight bearing exercises for pt to choose to perform; pt has been very compliant overall and is motivated to perform exercises/ADLs with good biomechanics, posture, and safely. Pt would benefit from skilled PT for progressive hip and postural strengthening, body mechanics training in order to safely return to PLOF and improve QOL . Physical Therapy Plan Frequency and Duration Frequency of Treatment 1-2/wk Duration of treatment (weeks) 6 Plan of Care Start Date 10/04/23 Plan of Care End Date 11/16/23 Therapeutic Interventions Therapeutic Interventions Aquatic Therapy,Balance Training,Coordination Training ,Gait Training,Home Exercise Program,Joint Mobilizations, Manual Therapy,Neuromuscular Re-education,Orthotic/ Prosthetic Management,Patient/ Caregiver Education,Self-Care/ Home Management,Sensory Integration,Soft Tissue Mobilization,Taping, Therapeutic Activities, Therapeutic Exercises Modalities Cold Pack/Ice Massage,Electric Stimulation,Hot Packs, Ultrasound,Vasopneumatic Devices Other Referrals/Consults Referrals/Consults Recommended Recommend dietary consult to address any limitations in diet and supplements for improved bone health Next Visit Focus/Plan Next Note Type Treatment Note Next Visit Plan Next session: progress lat/ rows to cables if tolerate well, postural strengthening, hip strengthening, trial leg press, review goals Hip hinge establish safe osteoporosis exercise regimen. Postural re-education and strengthening. HS stretch, PF, trunk extensor strengthening, rows, shoulder exercises (no overhead lifting) POC: body mechanics, posture, spine and hip specific exercise, core and hip ext/ trunk ext strength; create activity regimen spine ext, rows
--- NOTE | 2023-10-23 16:49 | PT.OTN ---
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 She is normally very active with yoga, line dancing, clogging, hiking, walking, gardening ( heavy landscaping, shoveling, digging), lifting (e.g. hauling cement), kayaking. However, she has limited her activity since her dx in early September due to fear of injury . Hx of stress fracture to R tibia from dance (several decades ago). No other significant PMH or injuries. Reports no changes to balance. No hx of falls or fractures. She has started taking calcium and vitamin D; reports physician gave restrictions of don't bend over, don't twist . She is concerned about being able to participate in her daily or seasonal activities. 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 Seasonal- gardening, kayaking PT-OP-C Subjective Start: 10/04/23 09:44 Freq: Status: Active Protocol: Document 10/23/23 10:20 AB (Rec: 10/23/23 16:49 AB [id number]) OP-PT Subjective Patient Comments Patient Comments Patient reports she is the same, the exercises are going good. PT-OP-D Balance Start: 10/04/23 09:44 Freq: Status: Active Protocol: Document 10/04/23 09:44 NM (Rec: 10/04/23 11:43 NM [id number]) OP-PT Balance Assessment Sitting Balance Static Sitting Balance Ability Normal Dynamic Sitting Balance Ability Normal Standing Balance Static Standing Balance Ability Normal Dynamic Standing Balance Ability Normal Device Used none Balance Tests Mendez Balance Test Mendez Balance Test Score 56/56 mCTSIB mCTSIB Position 1 30 seconds eyes open, stable surface; no sway mCTSIB Position 2 30 seconds eyes closed, stable surface; minimal sway, ankle strategy mCTSIB Position 3 30 seconds eyes closed, foam surface; minimal sway, ankle strategy mCTSIB Position 4 30 seconds eyes closed, foam surface; increased sway,no LOB , ankle strategy Romberg Romberg 30 seconds, minimal sway Single Limb Standing Single Limb- Right 30 seconds Single Limb- Left 30 seconds Tandem Tandem Standing 30 seconds ea LE, increased sway Chance Fall Scale Copyright Permission PT-OP-E Functional Tests Start: 10/04/23 09:44 Freq: Status: Active Protocol: Document 10/04/23 09:44 NM (Rec: 10/04/23 11:43 NM [id number]) Functional Tests 30 Second Sit to Stand Test Score 19 Comments demos increased trunk flexion with squat PT-OP-F Manual Assessment Start: 10/04/23 09:44 Freq: Status: Active Protocol: Document 10/04/23 09:44 NM (Rec: 10/04/23 11:43 NM [id number]) Manual Assessments Soft Tissue Assessment Soft Tissue Mobility Assessment Minimal restrictions of hip flexors, hamstrings Joint Mobility Assessment Joint Mobility Assessment Full B hip/knee PROM, lumbar spine AROM PT-OP-G Mobility & Gait Start: 10/04/23 09:44 Freq: Status: Active Protocol: Document 10/04/23 09:44 NM (Rec: 10/04/23 11:43 NM [id number]) OP Gait Assessment Gait Gait Assistance Required: Independent Distance (Feet) 500 Assistive Devices Assistive Device None Gait Deviations General Gait Pattern Within Normal Limits Comments Gait Comments Pt has steady gait, increased gait speed. Good awareness of surroundings Stair Climbing Evaluation Evaluation Level of Assist On Stairs Independent Devices Stair Climbing Assistive Devices None Technique/Endurance Stair Climbing Direction Ascend and Descend Stair Climbing Technique Step Over Step Number of Steps Climbed 4 Stair Climbing Set # Repetitions (reps) 5 Comments Stair Climbing Comments Very quick speed, good balance PT-OP-H Neuro Start: 10/04/23 09:44 Freq: Status: Active Protocol: Document 10/04/23 09:44 NM (Rec: 10/04/23 11:43 NM [id number]) Sensation Evaluation Comments Summary Comments Intact BLE light touch sensation PT-OP-J Posture/Palpation/Skin Start: 10/04/23 09:44 Freq: Status: Active Protocol: Document 10/04/23 09:44 NM (Rec: 10/04/23 11:43 NM [id number]) Posture Evaluation Position Standing Evaluation View Lateral Head/C-Spine Posture Forward Head Shoulder Posture (L) Forward,(R) Forward,(R) Elevated Scapula Posture (L) Protracted,(R) Protracted Pelvis Posture Anteriorly Tilted Weight Distribution Balanced Hip Posture (L) Externally Rotated,(R) Externally Rotated Patellar Posture (L) Superior,(R) Superior Ankle/Foot Posture (L) Forefoot Eversion,(R) Forefoot Eversion PT-OP-K Range of Motion Start: 10/04/23 09:44 Freq: Status: Active Protocol: Document 10/04/23 09:44 NM (Rec: 10/04/23 11:43 NM [id number]) Lumbar Spine Range of Motion Lumbar Spine Active Percentage Testing Position Standing Flexion 100 Extension 100 Rotation Left 100 Rotation Right 100 Lateral Flexion Left 100 Lateral Flexion Right 100 Comments Full AROM, cued straight leg to prevent compensation PT-OP-M Strength Start: 10/04/23 09:44 Freq: Status: Active Protocol: Document 10/04/23 09:44 NM (Rec: 10/04/23 11:43 NM [id number]) Trunk Strength Trunk Manual Muscle Testing Flexion 4 Good Extension 4 Good Rotation Left 5 Normal Rotation Right 5 Normal Lateral Flexion Left 4 Good Lateral Flexion Right 4 Good Comments Trunk flexion resisted motion performed in sitting with pt using upright posture against resistance without increased trunk flexion Hip Strength Hip Manual Muscle Testing Left Flexion (L2) 4+ Good+ Extension (S1) 4- Good- Abduction 4 Good Adduction 4+ Good+ External Rotation 4+ Good+ Internal Rotation 4+ Good+ Right Flexion (L2) 4+ Good+ Extension (S1) 4- Good- Abduction 4 Good Adduction 4+ Good+ External Rotation 4+ Good+ Internal Rotation 4+ Good+ Knee Strength Knee Manual Muscle Testing Left Flexion (S2) 5 Normal Extension (L3) 5 Normal Right Flexion (S2) 5 Normal Extension (L3) 5 Normal Ankle/Foot Strength Ankle and Foot Manual Muscle Testing Left Dorsiflexion (L4) 5 Normal Plantarflexion (S1) 5 Normal Inversion 5 Normal Eversion (S1) 5 Normal Right Dorsiflexion (L4) 5 Normal Plantarflexion (S1) 5 Normal Inversion 5 Normal Eversion (S1) 5 Normal PT-OP-Q Treatments Start: 10/04/23 09:44 Freq: Status: Active Protocol: Document 10/23/23 10:20 AB (Rec: 10/23/23 16:49 AB [id number]) Therapeutic Exercises Supine Exercises Figure 4 Supine Exercise Name knees to chest Side bilateral Equipment Used on mat Reps/Minutes 1x30 Comments back flat so minimal spinal flex hamstring stretch Supine Exercise Name holding leg with hands, hip at 90 deg Side bilateral Equipment Used mat on floor Reps/Minutes 1x60 ea Comments Patient ed impact of stiff hamstrings on low back Prone Exercises bird dog Prone Exercise Name alt arms and legs Side bilateral Resistance AROM Equipment Used mat on floor Reps/Minutes 1X10 ea side Comments dowel along spine Sitting Exercises hip abduction Sitting Exercise Name seated isomet with band Side bilateral Equipment Used blue level 4 Reps/Minutes one minute X 1 Comments for glute med activation Standing Exercises lunges Side bilateral Reps/Minutes 20 feet X 4 Comments Verbal and visual cues for hip hinge single leg Heel raise Side bilateral Reps/Minutes 15X 2 Comments verbal cues to lower heels to floor slowly Other Exercises sit to stand with band Side bilateral Resistance blue band 10 lb weight Reps/Minutes 3X10 Comments patient ed self tact cues for hip hinge prior Hip flexor stretch Other Exercise Name 1/2 kneel Side bilateral Equipment Used on mat Reps/Minutes 1x60 PT-OP-T Assessment and Plan Start: 10/04/23 09:44 Freq: Status: Active Protocol: Document 10/23/23 10:20 AB (Rec: 10/23/23 16:49 AB [id number]) Physical Therapy Assessment Goals Five Impairment education Anti Tank Missileman Goal (LTG) Pt will be provided with at least 3 resources for osteoporosis regarding condition, diet, exercise, activity modification, and safe movement patterns for further education regarding diagnosis and to decrease risk of fracture. 10/12/23: MET- pt provided with handouts, websites, videos, and other resources from various national osteoporosis groups regarding above information LTG Duration 6 weeks Four Impairment trunk extensor strength Anti Tank Missileman Goal (LTG) Pt will be able to perform at least 10 bilateral bird dogs with good form (stable pelvis) or a modified plank or better for at least 30 seconds in order to demonstrate improved core stability and spinal extensor strength required to prevent forward trunk posture. 10/23/2023 10 bird dogs with good form dowel remains along spine throughout LTG Duration 6 weeks Three Impairment strength Impairment B hip ext 4-/5, hip abd 4/5 Longterm Goal (LTG) Pt will improve B hip ext and B hip abd strength to at least 4+/5 in order to demonstrate improved hip strength needed to stabilize pelvis during activity. LTG Duration 6 weeks Two Impairment exercise Impairment Not performing osteoporosis- specific exercise program Short Term Goal (STG) Pt will report compliance with osteoporosis-specific HEP at least 3x/wk in order to demonstrate improved understanding of diagnosis. 10/18/23: Pt compliant with HEP 3x/wk, choosing which exercises to do ea day STG Duration 3 weeks MET Anti Tank Missileman Goal (LTG) Pt will report compliance with osteoporosis-specific exercise program at least 3x/ wk for maintainance to maximize gains made during PT. LTG Duration 6 weeks One Impairment body mechanics Short Term Goal (STG) Pt will demonstrate good hip hinge mechanism during bending and lifting for at least 5/10 reps in order to demonstrate improved safety and posture to decrease risk of compression fracture. STG Duration 3 weeks Longterm Goal (LTG) Pt will demonstrate good body mechanics utilizing hip hinge and limiting spinal flexion when lifting a 10# object from the floor in order to demonstrate improved safety and posture to decrease risk of compression fracture. LTG Duration 6 weeks Assessment Summary Assessment Patient reports no increased pain end of session. Physical Therapy Plan Frequency and Duration Frequency of Treatment 1-2/wk Duration of treatment (weeks) 6 Plan of Care Start Date 10/04/23 Plan of Care End Date 11/16/23 Next Visit Focus/Plan Next Note Type Treatment Note Next Visit Plan Next session: progress lat/ rows to cables if tolerate well, postural strengthening, hip strengthening, trial leg press, review goals Hip hinge establish safe osteoporosis exercise regimen. Postural re-education and strengthening. HS stretch, PF, trunk extensor strengthening, rows, shoulder exercises (no overhead lifting) POC: body mechanics, posture, spine and hip specific exercise, core and hip ext/ trunk ext strength; create activity regimen spine ext, rows and leg press next session to prep for gym membership.
--- NOTE | 2023-10-26 10:45 | PT.OTN ---
Current Diagnoses Age-related osteoporosis without current pathological fracture (10/26/23) Physical Therapy Treatment Note PT-OP-A Visit Information Start: 10/04/23 09:44 Freq: Status: Active Protocol: Document 10/26/23 08:08 AB (Rec: 10/26/23 10:45 AB [id number]) Out-Patient Physical Therapy Visit Information Visit Information Visit Type Treatment Note Visit Start Time 09:48 Visit Stop Time 10:30 Visit Number 6 Number of MARKETING OFFICER Visits 2 Evaluation Information Evaluation Date 10/04/23 Precautions Precautions Osteoporosis (no spinal flexion) PT-OP-B Current Condition Start: 10/04/23 09:44 Freq: Status: Active Protocol: Document 10/04/23 09:44 NM (Rec: 10/04/23 11:43 NM [id number]) Current Condition History of Current Condition Onset Date September 2023 History of Current Condition Pt presents with newly diagnosed osteoporosis without fracture in September 2023. She is normally very active with yoga, line dancing, clogging, hiking, walking, gardening ( heavy landscaping, shoveling, digging), lifting (e.g. hauling cement), kayaking. However, she has limited her activity since her dx in early September due to fear of injury . Hx of stress fracture to R tibia from dance (several decades ago). No other significant PMH or injuries. Reports no changes to balance. No hx of falls or fractures. She has started taking calcium and vitamin D; reports physician gave restrictions of don't bend over, don't twist . She is concerned about being able to participate in her daily or seasonal activities. 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 Seasonal- gardening, kayaking PT-OP-C Subjective Start: 10/04/23 09:44 Freq: Status: Active Protocol: Document 10/26/23 08:08 AB (Rec: 10/26/23 10:45 AB [id number]) OP-PT Subjective Patient Comments Patient Comments Patient reports having glute soreness post previous session and glute med exercises. Patient reports she thinks she is doing the Superman's better. PT-OP-D Balance Start: 10/04/23 09:44 Freq: Status: Active Protocol: Document 10/04/23 09:44 NM (Rec: 10/04/23 11:43 NM [id number]) OP-PT Balance Assessment Sitting Balance Static Sitting Balance Ability Normal Dynamic Sitting Balance Ability Normal Standing Balance Static Standing Balance Ability Normal Dynamic Standing Balance Ability Normal Device Used none Balance Tests Mendez Balance Test Mendez Balance Test Score 56/56 mCTSIB mCTSIB Position 1 30 seconds eyes open, stable surface; no sway mCTSIB Position 2 30 seconds eyes closed, stable surface; minimal sway, ankle strategy mCTSIB Position 3 30 seconds eyes closed, foam surface; minimal sway, ankle strategy mCTSIB Position 4 30 seconds eyes closed, foam surface; increased sway,no LOB , ankle strategy Romberg Romberg 30 seconds, minimal sway Single Limb Standing Single Limb- Right 30 seconds Single Limb- Left 30 seconds Tandem Tandem Standing 30 seconds ea LE, increased sway Chance Fall Scale Copyright Permission PT-OP-E Functional Tests Start: 10/04/23 09:44 Freq: Status: Active Protocol: Document 10/04/23 09:44 NM (Rec: 10/04/23 11:43 NM [id number]) Functional Tests 30 Second Sit to Stand Test Score 19 Comments demos increased trunk flexion with squat PT-OP-F Manual Assessment Start: 10/04/23 09:44 Freq: Status: Active Protocol: Document 10/04/23 09:44 NM (Rec: 10/04/23 11:43 NM [id number]) Manual Assessments Soft Tissue Assessment Soft Tissue Mobility Assessment Minimal restrictions of hip flexors, hamstrings Joint Mobility Assessment Joint Mobility Assessment Full B hip/knee PROM, lumbar spine AROM PT-OP-G Mobility & Gait Start: 10/04/23 09:44 Freq: Status: Active Protocol: Document 10/04/23 09:44 NM (Rec: 10/04/23 11:43 NM [id number]) OP Gait Assessment Gait Gait Assistance Required: Independent Distance (Feet) 500 Assistive Devices Assistive Device None Gait Deviations General Gait Pattern Within Normal Limits Comments Gait Comments Pt has steady gait, increased gait speed. Good awareness of surroundings Stair Climbing Evaluation Evaluation Level of Assist On Stairs Independent Devices Stair Climbing Assistive Devices None Technique/Endurance Stair Climbing Direction Ascend and Descend Stair Climbing Technique Step Over Step Number of Steps Climbed 4 Stair Climbing Set # Repetitions (reps) 5 Comments Stair Climbing Comments Very quick speed, good balance PT-OP-H Neuro Start: 10/04/23 09:44 Freq: Status: Active Protocol: Document 10/04/23 09:44 NM (Rec: 10/04/23 11:43 NM [id number]) Sensation Evaluation Comments Summary Comments Intact BLE light touch sensation PT-OP-J Posture/Palpation/Skin Start: 10/04/23 09:44 Freq: Status: Active Protocol: Document 10/04/23 09:44 NM (Rec: 10/04/23 11:43 NM [id number]) Posture Evaluation Position Standing Evaluation View Lateral Head/C-Spine Posture Forward Head Shoulder Posture (L) Forward,(R) Forward,(R) Elevated Scapula Posture (L) Protracted,(R) Protracted Pelvis Posture Anteriorly Tilted Weight Distribution Balanced Hip Posture (L) Externally Rotated,(R) Externally Rotated Patellar Posture (L) Superior,(R) Superior Ankle/Foot Posture (L) Forefoot Eversion,(R) Forefoot Eversion PT-OP-K Range of Motion Start: 10/04/23 09:44 Freq: Status: Active Protocol: Document 10/04/23 09:44 NM (Rec: 10/04/23 11:43 NM [id number]) Lumbar Spine Range of Motion Lumbar Spine Active Percentage Testing Position Standing Flexion 100 Extension 100 Rotation Left 100 Rotation Right 100 Lateral Flexion Left 100 Lateral Flexion Right 100 Comments Full AROM, cued straight leg to prevent compensation PT-OP-M Strength Start: 10/04/23 09:44 Freq: Status: Active Protocol: Document 10/04/23 09:44 NM (Rec: 10/04/23 11:43 NM [id number]) Trunk Strength Trunk Manual Muscle Testing Flexion 4 Good Extension 4 Good Rotation Left 5 Normal Rotation Right 5 Normal Lateral Flexion Left 4 Good Lateral Flexion Right 4 Good Comments Trunk flexion resisted motion performed in sitting with pt using upright posture against resistance without increased trunk flexion Hip Strength Hip Manual Muscle Testing Left Flexion (L2) 4+ Good+ Extension (S1) 4- Good- Abduction 4 Good Adduction 4+ Good+ External Rotation 4+ Good+ Internal Rotation 4+ Good+ Right Flexion (L2) 4+ Good+ Extension (S1) 4- Good- Abduction 4 Good Adduction 4+ Good+ External Rotation 4+ Good+ Internal Rotation 4+ Good+ Knee Strength Knee Manual Muscle Testing Left Flexion (S2) 5 Normal Extension (L3) 5 Normal Right Flexion (S2) 5 Normal Extension (L3) 5 Normal Ankle/Foot Strength Ankle and Foot Manual Muscle Testing Left Dorsiflexion (L4) 5 Normal Plantarflexion (S1) 5 Normal Inversion 5 Normal Eversion (S1) 5 Normal Right Dorsiflexion (L4) 5 Normal Plantarflexion (S1) 5 Normal Inversion 5 Normal Eversion (S1) 5 Normal PT-OP-Q Treatments Start: 10/04/23 09:44 Freq: Status: Active Protocol: Document 10/26/23 08:08 AB (Rec: 10/26/23 10:45 AB [id number]) Gym Equipment Cable Column (Body Solid) rows, lats Details in stagger stance sh ext not gene Resistance 1 at cables for row and lat Reps/Time 2X10 Shuttle Recovery shuttle single leg Details left and right LE Resistance one dark blue strap Reps/Time X15 X2 bilateral Resistance 1X10 one drk blue 2X16 2 blue cords Reps/Time 2X16 1X10 Therapeutic Exercises Prone Exercises plank Prone Exercise Name 1. full plank, 2. full plank with hip ext Reps/Minutes 60 seconds X 1 X10 for plank with hip extension spinal extension Prone Exercise Name 1. superman, 2. skydiver Side bilateral Resistance AROM Equipment Used on table/plinth Reps/Minutes X15 3 sec hold each Comments cued for 3 scond hold bird dog Prone Exercise Name alt arms and legs Side bilateral Resistance AROM Equipment Used mat on floor Reps/Minutes 1X10 ea side Comments dowel along spine Sitting Exercises hip abduction Sitting Exercise Name seated isomet with band Side bilateral Equipment Used blue level 4 Reps/Minutes one minute X 1 Comments for glute med activation Standing Exercises lunges Side bilateral Reps/Minutes 20 feet X 4 Comments Verbal and visual cues for hip hinge Theraband arms Standing Exercise Name shoulder extension Side bilateral Resistance purple and blue band Reps/Minutes 2X10 Comments Verbal cues for stagger stance , tactile cues at scapula Self-Care/Home Management Treatment Education Other Education Pt ed avoiding locking knees on leg press, to start very light with all weight at gym, and use of cable machine, Rationale of stagger stance with rows to avoid lumbar spine extension. PT-OP-T Assessment and Plan Start: 10/04/23 09:44 Freq: Status: Active Protocol: Document 10/26/23 08:08 AB (Rec: 10/26/23 10:45 AB [id number]) Physical Therapy Assessment Goals Five Impairment education Custodial Goal (LTG) Pt will be provided with at least 3 resources for osteoporosis regarding condition, diet, exercise, activity modification, and safe movement patterns for further education regarding diagnosis and to decrease risk of fracture. 10/12/23: MET- pt provided with handouts, websites, videos, and other resources from various national osteoporosis groups regarding above information LTG Duration 6 weeks Four Impairment trunk extensor strength Custodial Goal (LTG) Pt will be able to perform at least 10 bilateral bird dogs with good form (stable pelvis) or a modified plank or better for at least 30 seconds in order to demonstrate improved core stability and spinal extensor strength required to prevent forward trunk posture. 10/23/2023 10 bird dogs with good form dowel remains along spine throughout 10/26/23 able to perform full plank 60 seconds good form, no muscle shaking. LTG Duration 6 weeks Three Impairment strength Impairment B hip ext 4-/5, hip abd 4/5 Fish Bait Picker Goal (LTG) Pt will improve B hip ext and B hip abd strength to at least 4+/5 in order to demonstrate improved hip strength needed to stabilize pelvis during activity. LTG Duration 6 weeks Two Impairment exercise Impairment Not performing osteoporosis- specific exercise program Short Term Goal (STG) Pt will report compliance with osteoporosis-specific HEP at least 3x/wk in order to demonstrate improved understanding of diagnosis. 10/18/23: Pt compliant with HEP 3x/wk, choosing which exercises to do ea day STG Duration 3 weeks MET Custodial Goal (LTG) Pt will report compliance with osteoporosis-specific exercise program at least 3x/ wk for maintainance to maximize gains made during PT. LTG Duration 6 weeks One Impairment body mechanics Short Term Goal (STG) Pt will demonstrate good hip hinge mechanism during bending and lifting for at least 5/10 reps in order to demonstrate improved safety and posture to decrease risk of compression fracture. STG Duration 3 weeks Custodial Goal (LTG) Pt will demonstrate good body mechanics utilizing hip hinge and limiting spinal flexion when lifting a 10# object from the floor in order to demonstrate improved safety and posture to decrease risk of compression fracture. LTG Duration 6 weeks Assessment Summary Assessment Lizette reports having no increased pain end of session, Good form with all exercises, able to perform plank 60 seconds with no muscle shaking . Physical Therapy Plan Frequency and Duration Frequency of Treatment 1-2/wk Duration of treatment (weeks) 6 Plan of Care Start Date 10/04/23 Plan of Care End Date 11/16/23 Next Visit Focus/Plan Next Note Type Treatment Note Next Visit Plan Next session: assess gene to lat/rows to cables and shuttle /leg press previous session. If tolerated well, postural strengthening, hip strengthening/increase bands with sit to stand/side stepping with band. Review Hip hinge establish safe osteoporosis exercise regimen. Postural re-education and strengthening. HS stretch , PF, trunk extensor strengthening, rows, shoulder exercises (no overhead lifting ) POC: body mechanics, posture, spine and hip specific exercise, core and hip ext/ trunk ext strength; create activity regimen spine ext, rows and leg press review as needed to prep for gym membership.
--- NOTE | 2023-10-30 11:59 | PT.OTN ---
Current Diagnoses Age-related osteoporosis without current pathological fracture (10/30/23) Physical Therapy Treatment Note PT-OP-A Visit Information Start: 10/04/23 09:44 Freq: Status: Active Protocol: Document 10/30/23 09:48 NM (Rec: 10/30/23 10:31 NM [id number]) Out-Patient Physical Therapy Visit Information Visit Information Visit Type Treatment Note Visit Start Time 09:48 Visit Stop Time 10:30 Visit Number 7 Evaluation Information Evaluation Date 10/04/23 Precautions Precautions Osteoporosis (no spinal flexion) PT-OP-B Current Condition Start: 10/04/23 09:44 Freq: Status: Active Protocol: Document 10/04/23 09:44 NM (Rec: 10/04/23 11:43 NM [id number]) Current Condition History of Current Condition Onset Date September 2023 History of Current Condition Pt presents with newly diagnosed osteoporosis without fracture in September 2023. She is normally very active with yoga, line dancing, clogging, hiking, walking, gardening ( heavy landscaping, shoveling, digging), lifting (e.g. hauling cement), kayaking. However, she has limited her activity since her dx in early September due to fear of injury . Hx of stress fracture to R tibia from dance (several decades ago). No other significant PMH or injuries. Reports no changes to balance. No hx of falls or fractures. She has started taking calcium and vitamin D; reports physician gave restrictions of don't bend over, don't twist . She is concerned about being able to participate in her daily or seasonal activities. 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 Seasonal- gardening, kayaking PT-OP-C Subjective Start: 10/04/23 09:44 Freq: Status: Active Protocol: Document 10/30/23 09:48 NM (Rec: 10/30/23 10:31 NM [id number]) OP-PT Subjective Patient Comments Patient Comments Pt reports no soreness or pain after last session. Reports she is doing well. She has been going to the gym 7 days/ wk, alternating between arms/ legs, etc. She has been having the employees educate her on how to use the machines and weights; she is being careful with precautions PT-OP-D Balance Start: 10/04/23 09:44 Freq: Status: Active Protocol: Document 10/04/23 09:44 NM (Rec: 10/04/23 11:43 NM [id number]) OP-PT Balance Assessment Sitting Balance Static Sitting Balance Ability Normal Dynamic Sitting Balance Ability Normal Standing Balance Static Standing Balance Ability Normal Dynamic Standing Balance Ability Normal Device Used none Balance Tests Mendez Balance Test Mendez Balance Test Score 56/56 mCTSIB mCTSIB Position 1 30 seconds eyes open, stable surface; no sway mCTSIB Position 2 30 seconds eyes closed, stable surface; minimal sway, ankle strategy mCTSIB Position 3 30 seconds eyes closed, foam surface; minimal sway, ankle strategy mCTSIB Position 4 30 seconds eyes closed, foam surface; increased sway,no LOB , ankle strategy Romberg Romberg 30 seconds, minimal sway Single Limb Standing Single Limb- Right 30 seconds Single Limb- Left 30 seconds Tandem Tandem Standing 30 seconds ea LE, increased sway Chance Fall Scale Copyright Permission PT-OP-E Functional Tests Start: 10/04/23 09:44 Freq: Status: Active Protocol: Document 10/04/23 09:44 NM (Rec: 10/04/23 11:43 NM [id number]) Functional Tests 30 Second Sit to Stand Test Score 19 Comments demos increased trunk flexion with squat PT-OP-F Manual Assessment Start: 10/04/23 09:44 Freq: Status: Active Protocol: Document 10/04/23 09:44 NM (Rec: 10/04/23 11:43 NM [id number]) Manual Assessments Soft Tissue Assessment Soft Tissue Mobility Assessment Minimal restrictions of hip flexors, hamstrings Joint Mobility Assessment Joint Mobility Assessment Full B hip/knee PROM, lumbar spine AROM PT-OP-G Mobility & Gait Start: 10/04/23 09:44 Freq: Status: Active Protocol: Document 10/04/23 09:44 NM (Rec: 10/04/23 11:43 NM [id number]) OP Gait Assessment Gait Gait Assistance Required: Independent Distance (Feet) 500 Assistive Devices Assistive Device None Gait Deviations General Gait Pattern Within Normal Limits Comments Gait Comments Pt has steady gait, increased gait speed. Good awareness of surroundings Stair Climbing Evaluation Evaluation Level of Assist On Stairs Independent Devices Stair Climbing Assistive Devices None Technique/Endurance Stair Climbing Direction Ascend and Descend Stair Climbing Technique Step Over Step Number of Steps Climbed 4 Stair Climbing Set # Repetitions (reps) 5 Comments Stair Climbing Comments Very quick speed, good balance PT-OP-H Neuro Start: 10/04/23 09:44 Freq: Status: Active Protocol: Document 10/04/23 09:44 NM (Rec: 10/04/23 11:43 NM [id number]) Sensation Evaluation Comments Summary Comments Intact BLE light touch sensation PT-OP-J Posture/Palpation/Skin Start: 10/04/23 09:44 Freq: Status: Active Protocol: Document 10/04/23 09:44 NM (Rec: 10/04/23 11:43 NM [id number]) Posture Evaluation Position Standing Evaluation View Lateral Head/C-Spine Posture Forward Head Shoulder Posture (L) Forward,(R) Forward,(R) Elevated Scapula Posture (L) Protracted,(R) Protracted Pelvis Posture Anteriorly Tilted Weight Distribution Balanced Hip Posture (L) Externally Rotated,(R) Externally Rotated Patellar Posture (L) Superior,(R) Superior Ankle/Foot Posture (L) Forefoot Eversion,(R) Forefoot Eversion PT-OP-K Range of Motion Start: 10/04/23 09:44 Freq: Status: Active Protocol: Document 10/04/23 09:44 NM (Rec: 10/04/23 11:43 NM [id number]) Lumbar Spine Range of Motion Lumbar Spine Active Percentage Testing Position Standing Flexion 100 Extension 100 Rotation Left 100 Rotation Right 100 Lateral Flexion Left 100 Lateral Flexion Right 100 Comments Full AROM, cued straight leg to prevent compensation PT-OP-M Strength Start: 10/04/23 09:44 Freq: Status: Active Protocol: Document 10/04/23 09:44 NM (Rec: 10/04/23 11:43 NM [id number]) Trunk Strength Trunk Manual Muscle Testing Flexion 4 Good Extension 4 Good Rotation Left 5 Normal Rotation Right 5 Normal Lateral Flexion Left 4 Good Lateral Flexion Right 4 Good Comments Trunk flexion resisted motion performed in sitting with pt using upright posture against resistance without increased trunk flexion Hip Strength Hip Manual Muscle Testing Left Flexion (L2) 4+ Good+ Extension (S1) 4- Good- Abduction 4 Good Adduction 4+ Good+ External Rotation 4+ Good+ Internal Rotation 4+ Good+ Right Flexion (L2) 4+ Good+ Extension (S1) 4- Good- Abduction 4 Good Adduction 4+ Good+ External Rotation 4+ Good+ Internal Rotation 4+ Good+ Knee Strength Knee Manual Muscle Testing Left Flexion (S2) 5 Normal Extension (L3) 5 Normal Right Flexion (S2) 5 Normal Extension (L3) 5 Normal Ankle/Foot Strength Ankle and Foot Manual Muscle Testing Left Dorsiflexion (L4) 5 Normal Plantarflexion (S1) 5 Normal Inversion 5 Normal Eversion (S1) 5 Normal Right Dorsiflexion (L4) 5 Normal Plantarflexion (S1) 5 Normal Inversion 5 Normal Eversion (S1) 5 Normal PT-OP-Q Treatments Start: 10/04/23 09:44 Freq: Status: Active Protocol: Document 10/30/23 09:48 NM (Rec: 10/30/23 10:31 NM [id number]) Cardio Equipment Elliptical Duration (Minutes) 4 Resistance 5 Other warm up Therapeutic Exercises Prone Exercises plank Prone Exercise Name full plank with hip ext Side bilateral Reps/Minutes 2x5 ea Comments cued stable pelvis with alt; core stab bird dog Prone Exercise Name alt arms and legs Side bilateral Resistance AROM Equipment Used mat on floor Reps/Minutes 1x10 ea side, 1x10 ea with lvl 2 tb for arms Comments no dowel; added tb for challenge; improved stability Sidelying Exercises side plank Sidelying Exercise Name full side plank Side bilateral Equipment Used mat Reps/Minutes 2x30 ea Comments cued neutral spine; demos no twisting Standing Exercises cables Standing Exercise Name 1. low row, 2. upright row, 3. chest press Side bilateral Resistance lvl 1 cable Equipment Used seated chest press with 5# db Reps/Minutes 1x10 ea Comments cued for neutral spine, no excess spine ext squat Standing Exercise Name split squat Side bilateral Resistance 5# db ea hand Reps/Minutes 1x10 ea side Comments cued for hip hinge, B knee bend Therapeutic Activity Therapeutic Activity 1/2 kneel picker and packer Reps/Minutes 1x10 ea side Comments 10# db, from split squat position, using hip hinge Cued to keep weight closer to body, no progression above 10# . L side more challenging than R side, using hands to assist at quad to stand Hip hinge Comments 1. deadlift staggered stance, 1x8 ea leg with 5# db Improved hip hinge 2. deadlift/squat equal stance , 1x8 from floor, 5# db Cued to carry db closer to body for safety 3. deadlift/squat equal stance , 2x8 from floor, 10# db Cued greater hip hinge as depth increased PT-OP-T Assessment and Plan Start: 10/04/23 09:44 Freq: Status: Active Protocol: Document 10/30/23 09:48 NM (Rec: 10/30/23 10:31 NM [id number]) Physical Therapy Assessment Goals Five Impairment education Halfway Goal (LTG) Pt will be provided with at least 3 resources for osteoporosis regarding condition, diet, exercise, activity modification, and safe movement patterns for further education regarding diagnosis and to decrease risk of fracture. 10/12/23: MET- pt provided with handouts, websites, videos, and other resources from various national osteoporosis groups regarding above information LTG Duration 6 weeks Four Impairment trunk extensor strength Press Tender Short Goods Goal (LTG) Pt will be able to perform at least 10 bilateral bird dogs with good form (stable pelvis) or a modified plank or better for at least 30 seconds in order to demonstrate improved core stability and spinal extensor strength required to prevent forward trunk posture. 10/30/23: bird dog with theraband, good core stability 10/23/2023 10 bird dogs with good form dowel remains along spine throughout 10/26/23 able to perform full plank 60 seconds good form, no muscle shaking. LTG Duration 6 weeks MET Three Impairment strength Impairment B hip ext 4-/5, hip abd 4/5 Press Tender Short Goods Goal (LTG) Pt will improve B hip ext and B hip abd strength to at least 4+/5 in order to demonstrate improved hip strength needed to stabilize pelvis during activity. LTG Duration 6 weeks Two Impairment exercise Impairment Not performing osteoporosis- specific exercise program Short Term Goal (STG) Pt will report compliance with osteoporosis-specific HEP at least 3x/wk in order to demonstrate improved understanding of diagnosis. 10/18/23: Pt compliant with HEP 3x/wk, choosing which exercises to do ea day STG Duration 3 weeks MET Halfway Goal (LTG) Pt will report compliance with osteoporosis-specific exercise program at least 3x/ wk for maintainance to maximize gains made during PT. 10/30/23: Compliant with HEP, started going to gym every day LTG Duration 6 weeks MET One Impairment body mechanics Short Term Goal (STG) Pt will demonstrate good hip hinge mechanism during bending and lifting for at least 5/10 reps in order to demonstrate improved safety and posture to decrease risk of compression fracture. 10/30/22: AROM with hip hinge, 1x10 reps with good mechanics STG Duration 3 weeks MET Halfway Goal (LTG) Pt will demonstrate good body mechanics utilizing hip hinge and limiting spinal flexion when lifting a 10# object from the floor in order to demonstrate improved safety and posture to decrease risk of compression fracture. LTG Duration 6 weeks Progress Towards Goals Progress Towards Goals Progressing Toward Goals,Goals Met Assessment Summary Assessment Pt reports no pain or soreness after sessions. She has began attending a gym, was going every day. PT educated pt on allowing muscles to rest, injury prevention, and performing programs about 3x/ wk. Continued with lumbar, glute, arm, and core strengthening. Progressed planks, squats, and deadlifts with both resistance, reps, and activity. Pt demos improved hip hinge. Occasional verbal cues only for safety. PT and pt discussed POC as ending soon; pt and PT in agreement about discharge at 3 /4 visit. Pt would benefit from skilled PT for further education regarding osteoporosis education, safe exercises, and progressive trunk/BLE strengthening within safe osteoporosis precautions . Physical Therapy Plan Frequency and Duration Frequency of Treatment 1-2/wk Duration of treatment (weeks) 6 Plan of Care Start Date 10/04/23 Plan of Care End Date 11/16/23 Therapeutic Interventions Therapeutic Interventions Aquatic Therapy,Balance Training,Coordination Training ,Gait Training,Home Exercise Program,Joint Mobilizations, Manual Therapy,Neuromuscular Re-education,Orthotic/ Prosthetic Management,Patient/ Caregiver Education,Self-Care/ Home Management,Sensory Integration,Soft Tissue Mobilization,Taping, Therapeutic Activities, Therapeutic Exercises Modalities Cold Pack/Ice Massage,Electric Stimulation,Hot Packs, Ultrasound,Vasopneumatic Devices Other Referrals/Consults Referrals/Consults Recommended Recommend dietary consult to address any limitations in diet and supplements for improved bone health Next Visit Focus/Plan Next Note Type Treatment Note Next Visit Plan Next session: assess gene to lat/rows to cables and shuttle /leg press previous session. If tolerated well, postural strengthening, hip strengthening/increase bands with sit to stand/side stepping with band. Review Hip hinge establish safe osteoporosis exercise regimen. Postural re-education and strengthening. HS stretch , PF, trunk extensor strengthening, rows, shoulder exercises (no overhead lifting ) POC: body mechanics, posture, spine and hip specific exercise, core and hip ext/ trunk ext strength; create activity regimen spine ext, rows and leg press review as needed to prep for gym membership.
--- NOTE | 2023-11-02 10:53 | PT.OTN ---
Current Diagnoses Age-related osteoporosis without current pathological fracture (11/02/23) Physical Therapy Treatment Note PT-OP-A Visit Information Start: 10/04/23 09:44 Freq: Status: Active Protocol: Document 11/02/23 08:08 AB (Rec: 11/02/23 10:53 AB [id number]) Out-Patient Physical Therapy Visit Information Visit Information Visit Type Treatment Note Visit Note Access Code: [email or web address] Visit Start Time 09:47 Visit Stop Time 10:29 Visit Number 8 Number of DIRECTOR BANKING Visits 1 Evaluation Information Evaluation Date 10/04/23 Precautions Precautions Osteoporosis (no spinal flexion) PT-OP-B Current Condition Start: 10/04/23 09:44 Freq: Status: Active Protocol: Document 10/04/23 09:44 NM (Rec: 10/04/23 11:43 NM [id number]) Current Condition History of Current Condition Onset Date September 2023 History of Current Condition Pt presents with newly diagnosed osteoporosis without fracture in September 2023. She is normally very active with yoga, line dancing, clogging, hiking, walking, gardening ( heavy landscaping, shoveling, digging), lifting (e.g. hauling cement), kayaking. However, she has limited her activity since her dx in early September due to fear of injury . Hx of stress fracture to R tibia from dance (several decades ago). No other significant PMH or injuries. Reports no changes to balance. No hx of falls or fractures. She has started taking calcium and vitamin D; reports physician gave restrictions of don't bend over, don't twist . She is concerned about being able to participate in her daily or seasonal activities. 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 Seasonal- gardening, kayaking PT-OP-C Subjective Start: 10/04/23 09:44 Freq: Status: Active Protocol: Document 11/02/23 08:08 AB (Rec: 11/02/23 10:53 AB [id number]) OP-PT Subjective Patient Comments Patient Comments Patient reports muscle soreness post previous session , which was gone the next day. Patient reports she joined the gym and it went well. Referring to discharge from therapy comments she feels that she is equipped. PT-OP-D Balance Start: 10/04/23 09:44 Freq: Status: Active Protocol: Document 10/04/23 09:44 NM (Rec: 10/04/23 11:43 NM [id number]) OP-PT Balance Assessment Sitting Balance Static Sitting Balance Ability Normal Dynamic Sitting Balance Ability Normal Standing Balance Static Standing Balance Ability Normal Dynamic Standing Balance Ability Normal Device Used none Balance Tests Mendez Balance Test Mendez Balance Test Score 56/56 mCTSIB mCTSIB Position 1 30 seconds eyes open, stable surface; no sway mCTSIB Position 2 30 seconds eyes closed, stable surface; minimal sway, ankle strategy mCTSIB Position 3 30 seconds eyes closed, foam surface; minimal sway, ankle strategy mCTSIB Position 4 30 seconds eyes closed, foam surface; increased sway,no LOB , ankle strategy Romberg Romberg 30 seconds, minimal sway Single Limb Standing Single Limb- Right 30 seconds Single Limb- Left 30 seconds Tandem Tandem Standing 30 seconds ea LE, increased sway Chance Fall Scale Copyright Permission PT-OP-E Functional Tests Start: 10/04/23 09:44 Freq: Status: Active Protocol: Document 10/04/23 09:44 NM (Rec: 10/04/23 11:43 NM [id number]) Functional Tests 30 Second Sit to Stand Test Score 19 Comments demos increased trunk flexion with squat PT-OP-F Manual Assessment Start: 10/04/23 09:44 Freq: Status: Active Protocol: Document 10/04/23 09:44 NM (Rec: 10/04/23 11:43 NM [id number]) Manual Assessments Soft Tissue Assessment Soft Tissue Mobility Assessment Minimal restrictions of hip flexors, hamstrings Joint Mobility Assessment Joint Mobility Assessment Full B hip/knee PROM, lumbar spine AROM PT-OP-G Mobility & Gait Start: 10/04/23 09:44 Freq: Status: Active Protocol: Document 10/04/23 09:44 NM (Rec: 10/04/23 11:43 NM [id number]) OP Gait Assessment Gait Gait Assistance Required: Independent Distance (Feet) 500 Assistive Devices Assistive Device None Gait Deviations General Gait Pattern Within Normal Limits Comments Gait Comments Pt has steady gait, increased gait speed. Good awareness of surroundings Stair Climbing Evaluation Evaluation Level of Assist On Stairs Independent Devices Stair Climbing Assistive Devices None Technique/Endurance Stair Climbing Direction Ascend and Descend Stair Climbing Technique Step Over Step Number of Steps Climbed 4 Stair Climbing Set # Repetitions (reps) 5 Comments Stair Climbing Comments Very quick speed, good balance PT-OP-H Neuro Start: 10/04/23 09:44 Freq: Status: Active Protocol: Document 10/04/23 09:44 NM (Rec: 10/04/23 11:43 NM [id number]) Sensation Evaluation Comments Summary Comments Intact BLE light touch sensation PT-OP-J Posture/Palpation/Skin Start: 10/04/23 09:44 Freq: Status: Active Protocol: Document 10/04/23 09:44 NM (Rec: 10/04/23 11:43 NM [id number]) Posture Evaluation Position Standing Evaluation View Lateral Head/C-Spine Posture Forward Head Shoulder Posture (L) Forward,(R) Forward,(R) Elevated Scapula Posture (L) Protracted,(R) Protracted Pelvis Posture Anteriorly Tilted Weight Distribution Balanced Hip Posture (L) Externally Rotated,(R) Externally Rotated Patellar Posture (L) Superior,(R) Superior Ankle/Foot Posture (L) Forefoot Eversion,(R) Forefoot Eversion PT-OP-K Range of Motion Start: 10/04/23 09:44 Freq: Status: Active Protocol: Document 10/04/23 09:44 NM (Rec: 10/04/23 11:43 NM [id number]) Lumbar Spine Range of Motion Lumbar Spine Active Percentage Testing Position Standing Flexion 100 Extension 100 Rotation Left 100 Rotation Right 100 Lateral Flexion Left 100 Lateral Flexion Right 100 Comments Full AROM, cued straight leg to prevent compensation PT-OP-M Strength Start: 10/04/23 09:44 Freq: Status: Active Protocol: Document 10/04/23 09:44 NM (Rec: 10/04/23 11:43 NM [id number]) Trunk Strength Trunk Manual Muscle Testing Flexion 4 Good Extension 4 Good Rotation Left 5 Normal Rotation Right 5 Normal Lateral Flexion Left 4 Good Lateral Flexion Right 4 Good Comments Trunk flexion resisted motion performed in sitting with pt using upright posture against resistance without increased trunk flexion Hip Strength Hip Manual Muscle Testing Left Flexion (L2) 4+ Good+ Extension (S1) 4- Good- Abduction 4 Good Adduction 4+ Good+ External Rotation 4+ Good+ Internal Rotation 4+ Good+ Right Flexion (L2) 4+ Good+ Extension (S1) 4- Good- Abduction 4 Good Adduction 4+ Good+ External Rotation 4+ Good+ Internal Rotation 4+ Good+ Knee Strength Knee Manual Muscle Testing Left Flexion (S2) 5 Normal Extension (L3) 5 Normal Right Flexion (S2) 5 Normal Extension (L3) 5 Normal Ankle/Foot Strength Ankle and Foot Manual Muscle Testing Left Dorsiflexion (L4) 5 Normal Plantarflexion (S1) 5 Normal Inversion 5 Normal Eversion (S1) 5 Normal Right Dorsiflexion (L4) 5 Normal Plantarflexion (S1) 5 Normal Inversion 5 Normal Eversion (S1) 5 Normal PT-OP-Q Treatments Start: 10/04/23 09:44 Freq: Status: Active Protocol: Document 11/02/23 08:08 AB (Rec: 11/02/23 10:53 AB [id number]) Gym Equipment Cable Column (Body Solid) rows, lats Details in stagger stance Resistance 1 at cables for row and lat blue then purple Reps/Time 2X10 Eacj exercise, Verbal cues to dec elbow ext with lat , & VC for LE pos Therapeutic Exercises Prone Exercises plank Prone Exercise Name full plank, plank with hip ext with band, side planks Side bilateral Reps/Minutes 60 sec plank, 30 sec side plank, level 3X10 lev 2 band for hip ext in plank Comments monitored for pain and form bird dog Prone Exercise Name alt arms and legs Side bilateral Reps/Minutes 2 lb with UE's 2 lbs on LE's 2X10 Comments dowel on second set Other Exercises Standing hip extension with band Side bilateral Resistance level 2 band Reps/Minutes X10 each LE Comments verbal cues to avoid extending LS area Self-Care/Home Management Treatment Education Other Education Patient ed review of avoiding weight overhead at gym. Answered questions regarding hip abd and add machine at gym advising patient to prioritize abd. Activities Self-Care/Home Management Activities HEP updated: hip extension with band and weights/bands added to quadruped and planks to increasae glute max strength. PT-OP-T Assessment and Plan Start: 10/04/23 09:44 Freq: Status: Active Protocol: Document 11/02/23 08:08 AB (Rec: 11/02/23 10:53 AB [id number]) Physical Therapy Assessment Goals Five Impairment education Alf Goal (LTG) Pt will be provided with at least 3 resources for osteoporosis regarding condition, diet, exercise, activity modification, and safe movement patterns for further education regarding diagnosis and to decrease risk of fracture. 10/12/23: MET- pt provided with handouts, websites, videos, and other resources from various national osteoporosis groups regarding above information LTG Duration 6 weeks Four Impairment trunk extensor strength Alf Goal (LTG) Pt will be able to perform at least 10 bilateral bird dogs with good form (stable pelvis) or a modified plank or better for at least 30 seconds in order to demonstrate improved core stability and spinal extensor strength required to prevent forward trunk posture. 10/30/23: bird dog with theraband, good core stability 10/23/2023 10 bird dogs with good form dowel remains along spine throughout 10/26/23 able to perform full plank 60 seconds good form, no muscle shaking. LTG Duration 6 weeks MET Three Impairment strength Impairment B hip ext 4-/5, hip abd 4/5 Alf Goal (LTG) Pt will improve B hip ext and B hip abd strength to at least 4+/5 in order to demonstrate improved hip strength needed to stabilize pelvis during activity. LTG Duration 6 weeks Two Impairment Not performing osteoporosis- specific exercise program Short Term Goal (STG) Pt will report compliance with osteoporosis-specific HEP at least 3x/wk in order to demonstrate improved understanding of diagnosis. 10/18/23: Pt compliant with HEP 3x/wk, choosing which exercises to do ea day Alf Goal (LTG) Pt will report compliance with osteoporosis-specific exercise program at least 3x/ wk for maintainance to maximize gains made during PT. 10/30/23: Compliant with HEP, started going to gym every day LTG Duration 6 weeks MET One Impairment body mechanics Short Term Goal (STG) Pt will demonstrate good hip hinge mechanism during bending and lifting for at least 5/10 reps in order to demonstrate improved safety and posture to decrease risk of compression fracture. 10/30/22: AROM with hip hinge, 1x10 reps with good mechanics Alf Goal (LTG) Pt will demonstrate good body mechanics utilizing hip hinge and limiting spinal flexion when lifting a 10# object from the floor in order to demonstrate improved safety and posture to decrease risk of compression fracture. Assessment Summary Assessment Lizette reports no increased pain post session. Glute med 4+/5 bilaterally, glute max 4- /5 bilaterally start of session able to hold at 4/5 very briefly on second trial. Physical Therapy Plan Frequency and Duration Frequency of Treatment 1-2/wk Duration of treatment (weeks) 6 Plan of Care Start Date 10/04/23 Plan of Care End Date 11/16/23 Next Visit Focus/Plan Next Note Type Treatment Note Next Visit Plan Next session: If tolerated well, postural strengthening, hip strengthening/increase bands with sit to stand/side stepping with band. Review Hip hinge establish safe osteoporosis exercise regimen. Postural re-education and strengthening. HS stretch , PF, trunk extensor strengthening, rows, shoulder exercises (no overhead lifting ) POC: body mechanics, posture, spine and hip specific exercise, leg press review as needed to prep for gym membership.
--- NOTE | 2023-11-02 11:00 | PT.OTN ---
Current Diagnoses Age-related osteoporosis without current pathological fracture (11/02/23) Physical Therapy Treatment Note PT-OP-A Visit Information Start: 10/04/23 09:44 Freq: Status: Active Protocol: Document 11/02/23 08:08 AB (Rec: 11/02/23 10:53 AB [id number]) Out-Patient Physical Therapy Visit Information Visit Information Visit Type Treatment Note Visit Note Access Code: [email or web address] Visit Start Time 09:47 Visit Stop Time 10:29 Visit Number 8 Number of UI DESIGNER Visits 1 Evaluation Information Evaluation Date 10/04/23 Precautions Precautions Osteoporosis (no spinal flexion) PT-OP-B Current Condition Start: 10/04/23 09:44 Freq: Status: Active Protocol: Document 10/04/23 09:44 NM (Rec: 10/04/23 11:43 NM [id number]) Current Condition History of Current Condition Onset Date September 2023 History of Current Condition Pt presents with newly diagnosed osteoporosis without fracture in September 2023. She is normally very active with yoga, line dancing, clogging, hiking, walking, gardening ( heavy landscaping, shoveling, digging), lifting (e.g. hauling cement), kayaking. However, she has limited her activity since her dx in early September due to fear of injury . Hx of stress fracture to R tibia from dance (several decades ago). No other significant PMH or injuries. Reports no changes to balance. No hx of falls or fractures. She has started taking calcium and vitamin D; reports physician gave restrictions of don't bend over, don't twist . She is concerned about being able to participate in her daily or seasonal activities. 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 Seasonal- gardening, kayaking PT-OP-C Subjective Start: 10/04/23 09:44 Freq: Status: Active Protocol: Document 11/02/23 08:08 AB (Rec: 11/02/23 10:53 AB [id number]) OP-PT Subjective Patient Comments Patient Comments Patient reports muscle soreness post previous session , which was gone the next day. Patient reports she joined the gym and it went well. Referring to discharge from therapy comments she feels that she is equipped. PT-OP-D Balance Start: 10/04/23 09:44 Freq: Status: Active Protocol: Document 10/04/23 09:44 NM (Rec: 10/04/23 11:43 NM [id number]) OP-PT Balance Assessment Sitting Balance Static Sitting Balance Ability Normal Dynamic Sitting Balance Ability Normal Standing Balance Static Standing Balance Ability Normal Dynamic Standing Balance Ability Normal Device Used none Balance Tests Mendez Balance Test Mendez Balance Test Score 56/56 mCTSIB mCTSIB Position 1 30 seconds eyes open, stable surface; no sway mCTSIB Position 2 30 seconds eyes closed, stable surface; minimal sway, ankle strategy mCTSIB Position 3 30 seconds eyes closed, foam surface; minimal sway, ankle strategy mCTSIB Position 4 30 seconds eyes closed, foam surface; increased sway,no LOB , ankle strategy Romberg Romberg 30 seconds, minimal sway Single Limb Standing Single Limb- Right 30 seconds Single Limb- Left 30 seconds Tandem Tandem Standing 30 seconds ea LE, increased sway Chance Fall Scale Copyright Permission PT-OP-E Functional Tests Start: 10/04/23 09:44 Freq: Status: Active Protocol: Document 10/04/23 09:44 NM (Rec: 10/04/23 11:43 NM [id number]) Functional Tests 30 Second Sit to Stand Test Score 19 Comments demos increased trunk flexion with squat PT-OP-F Manual Assessment Start: 10/04/23 09:44 Freq: Status: Active Protocol: Document 10/04/23 09:44 NM (Rec: 10/04/23 11:43 NM [id number]) Manual Assessments Soft Tissue Assessment Soft Tissue Mobility Assessment Minimal restrictions of hip flexors, hamstrings Joint Mobility Assessment Joint Mobility Assessment Full B hip/knee PROM, lumbar spine AROM PT-OP-G Mobility & Gait Start: 10/04/23 09:44 Freq: Status: Active Protocol: Document 10/04/23 09:44 NM (Rec: 10/04/23 11:43 NM [id number]) OP Gait Assessment Gait Gait Assistance Required: Independent Distance (Feet) 500 Assistive Devices Assistive Device None Gait Deviations General Gait Pattern Within Normal Limits Comments Gait Comments Pt has steady gait, increased gait speed. Good awareness of surroundings Stair Climbing Evaluation Evaluation Level of Assist On Stairs Independent Devices Stair Climbing Assistive Devices None Technique/Endurance Stair Climbing Direction Ascend and Descend Stair Climbing Technique Step Over Step Number of Steps Climbed 4 Stair Climbing Set # Repetitions (reps) 5 Comments Stair Climbing Comments Very quick speed, good balance PT-OP-H Neuro Start: 10/04/23 09:44 Freq: Status: Active Protocol: Document 10/04/23 09:44 NM (Rec: 10/04/23 11:43 NM [id number]) Sensation Evaluation Comments Summary Comments Intact BLE light touch sensation PT-OP-J Posture/Palpation/Skin Start: 10/04/23 09:44 Freq: Status: Active Protocol: Document 10/04/23 09:44 NM (Rec: 10/04/23 11:43 NM [id number]) Posture Evaluation Position Standing Evaluation View Lateral Head/C-Spine Posture Forward Head Shoulder Posture (L) Forward,(R) Forward,(R) Elevated Scapula Posture (L) Protracted,(R) Protracted Pelvis Posture Anteriorly Tilted Weight Distribution Balanced Hip Posture (L) Externally Rotated,(R) Externally Rotated Patellar Posture (L) Superior,(R) Superior Ankle/Foot Posture (L) Forefoot Eversion,(R) Forefoot Eversion PT-OP-K Range of Motion Start: 10/04/23 09:44 Freq: Status: Active Protocol: Document 10/04/23 09:44 NM (Rec: 10/04/23 11:43 NM [id number]) Lumbar Spine Range of Motion Lumbar Spine Active Percentage Testing Position Standing Flexion 100 Extension 100 Rotation Left 100 Rotation Right 100 Lateral Flexion Left 100 Lateral Flexion Right 100 Comments Full AROM, cued straight leg to prevent compensation PT-OP-M Strength Start: 10/04/23 09:44 Freq: Status: Active Protocol: Document 10/04/23 09:44 NM (Rec: 10/04/23 11:43 NM [id number]) Trunk Strength Trunk Manual Muscle Testing Flexion 4 Good Extension 4 Good Rotation Left 5 Normal Rotation Right 5 Normal Lateral Flexion Left 4 Good Lateral Flexion Right 4 Good Comments Trunk flexion resisted motion performed in sitting with pt using upright posture against resistance without increased trunk flexion Hip Strength Hip Manual Muscle Testing Left Flexion (L2) 4+ Good+ Extension (S1) 4- Good- Abduction 4 Good Adduction 4+ Good+ External Rotation 4+ Good+ Internal Rotation 4+ Good+ Right Flexion (L2) 4+ Good+ Extension (S1) 4- Good- Abduction 4 Good Adduction 4+ Good+ External Rotation 4+ Good+ Internal Rotation 4+ Good+ Knee Strength Knee Manual Muscle Testing Left Flexion (S2) 5 Normal Extension (L3) 5 Normal Right Flexion (S2) 5 Normal Extension (L3) 5 Normal Ankle/Foot Strength Ankle and Foot Manual Muscle Testing Left Dorsiflexion (L4) 5 Normal Plantarflexion (S1) 5 Normal Inversion 5 Normal Eversion (S1) 5 Normal Right Dorsiflexion (L4) 5 Normal Plantarflexion (S1) 5 Normal Inversion 5 Normal Eversion (S1) 5 Normal PT-OP-Q Treatments Start: 10/04/23 09:44 Freq: Status: Active Protocol: Document 11/02/23 08:08 AB (Rec: 11/02/23 10:53 AB [id number]) Gym Equipment Cable Column (Body Solid) rows, lats Details in stagger stance Resistance 1 at cables for row and lat blue then purple Reps/Time 2X10 Eacj exercise, Verbal cues to dec elbow ext with lat , & VC for LE pos Therapeutic Exercises Prone Exercises plank Prone Exercise Name full plank, plank with hip ext with band, side planks Side bilateral Reps/Minutes 60 sec plank, 30 sec side plank, level 3X10 lev 2 band for hip ext in plank Comments monitored for pain and form bird dog Prone Exercise Name alt arms and legs Side bilateral Reps/Minutes 2 lb with UE's 2 lbs on LE's 2X10 Comments dowel on second set Other Exercises Standing hip extension with band Side bilateral Resistance level 2 band Reps/Minutes X10 each LE Comments verbal cues to avoid extending LS area Self-Care/Home Management Treatment Education Other Education Patient ed review of avoiding weight overhead at gym. Answered questions regarding hip abd and add machine at gym advising patient to prioritize abd. Activities Self-Care/Home Management Activities HEP updated: hip extension with band and weights/bands added to quadruped and planks to increasae glute max strength. PT-OP-T Assessment and Plan Start: 10/04/23 09:44 Freq: Status: Active Protocol: Document 11/02/23 08:08 AB (Rec: 11/02/23 10:53 AB [id number]) Physical Therapy Assessment Goals Five Impairment education [facility] Goal (LTG) Pt will be provided with at least 3 resources for osteoporosis regarding condition, diet, exercise, activity modification, and safe movement patterns for further education regarding diagnosis and to decrease risk of fracture. 10/12/23: MET- pt provided with handouts, websites, videos, and other resources from various national osteoporosis groups regarding above information LTG Duration 6 weeks Four Impairment trunk extensor strength [facility] Goal (LTG) Pt will be able to perform at least 10 bilateral bird dogs with good form (stable pelvis) or a modified plank or better for at least 30 seconds in order to demonstrate improved core stability and spinal extensor strength required to prevent forward trunk posture. 10/30/23: bird dog with theraband, good core stability 10/23/2023 10 bird dogs with good form dowel remains along spine throughout 10/26/23 able to perform full plank 60 seconds good form, no muscle shaking. LTG Duration 6 weeks MET Three Impairment strength Impairment B hip ext 4-/5, hip abd 4/5 [facility] Goal (LTG) Pt will improve B hip ext and B hip abd strength to at least 4+/5 in order to demonstrate improved hip strength needed to stabilize pelvis during activity. LTG Duration 6 weeks Two Impairment Not performing osteoporosis- specific exercise program Short Term Goal (STG) Pt will report compliance with osteoporosis-specific HEP at least 3x/wk in order to demonstrate improved understanding of diagnosis. 10/18/23: Pt compliant with HEP 3x/wk, choosing which exercises to do ea day [facility] Goal (LTG) Pt will report compliance with osteoporosis-specific exercise program at least 3x/ wk for maintainance to maximize gains made during PT. 10/30/23: Compliant with HEP, started going to gym every day LTG Duration 6 weeks MET One Impairment body mechanics Short Term Goal (STG) Pt will demonstrate good hip hinge mechanism during bending and lifting for at least 5/10 reps in order to demonstrate improved safety and posture to decrease risk of compression fracture. 10/30/22: AROM with hip hinge, 1x10 reps with good mechanics [facility] Goal (LTG) Pt will demonstrate good body mechanics utilizing hip hinge and limiting spinal flexion when lifting a 10# object from the floor in order to demonstrate improved safety and posture to decrease risk of compression fracture. Assessment Summary Assessment Lizette reports no increased pain post session. Glute med 4+/5 bilaterally, glute max 4- /5 bilaterally start of session able to hold at 4/5 very briefly on second trial. Physical Therapy Plan Frequency and Duration Frequency of Treatment 1-2/wk Duration of treatment (weeks) 6 Plan of Care Start Date 10/04/23 Plan of Care End Date 11/16/23 Next Visit Focus/Plan Next Note Type Treatment Note Next Visit Plan Next session: If tolerated well, postural strengthening, hip strengthening/increase bands with sit to stand/side stepping with band. Review Hip hinge establish safe osteoporosis exercise regimen. Postural re-education and strengthening. HS stretch , PF, trunk extensor strengthening, rows, shoulder exercises (no overhead lifting ) POC: body mechanics, posture, spine and hip specific exercise, leg press review as needed to prep for gym membership.
--- NOTE | 2023-11-05 10:29 | PT.OTN ---
Current Diagnoses Age-related osteoporosis without current pathological fracture (11/05/23) Physical Therapy Treatment Note PT-OP-A Visit Information Start: 10/04/23 09:44 Freq: Status: Active Protocol: Document 11/05/23 09:04 NM (Rec: 11/05/23 09:44 NM [id number]) Out-Patient Physical Therapy Visit Information Visit Information Visit Type Discharge Summary Visit Start Time 09:04 Visit Stop Time 09:45 Visit Number 9 Evaluation Information Evaluation Date 10/04/23 PT-OP-B Current Condition Start: 10/04/23 09:44 Freq: Status: Active Protocol: Document 10/04/23 09:44 NM (Rec: 10/04/23 11:43 NM [id number]) Current Condition History of Current Condition Onset Date September 2023 History of Current Condition Pt presents with newly diagnosed osteoporosis without fracture in September 2023. She is normally very active with yoga, line dancing, clogging, hiking, walking, gardening ( heavy landscaping, shoveling, digging), lifting (e.g. hauling cement), kayaking. However, she has limited her activity since her dx in early September due to fear of injury . Hx of stress fracture to R tibia from dance (several decades ago). No other significant PMH or injuries. Reports no changes to balance. No hx of falls or fractures. She has started taking calcium and vitamin D; reports physician gave restrictions of don't bend over, don't twist . She is concerned about being able to participate in her daily or seasonal activities. Prior Treatments and Tests No previous PT; 08/25 DEXA indicates AP spine osteoporosis, osteopenia B femoral necks Treatment Goals Patient/Caregiver Goals Safely exercise, safely continue with ADLs/ recreational, safely be able to picker small relatives who live nearby Prior Functional Status Baseline Function- ADL's Independent Baseline Function- Mobility Independent Baseline Function- Recreation/Hobbies Yoga 20-30 min/day; Daily walks 1-2 mi/day and trail walks 1x/wk. Seasonal- gardening, kayaking PT-OP-C Subjective Start: 10/04/23 09:44 Freq: Status: Active Protocol: Document 11/05/23 09:04 NM (Rec: 11/05/23 09:44 NM [id number]) OP-PT Subjective Patient Comments Patient Comments Pt reports no pain or muscle soreness after last session. She is no longer going to gym 7 days/wk, now only 3x/wk. She reports she is still walking every day. Has returned to hiking on stable trails. Agrees to discharge from PT today PT-OP-D Balance Start: 10/04/23 09:44 Freq: Status: Active Protocol: Document 10/04/23 09:44 NM (Rec: 10/04/23 11:43 NM [id number]) OP-PT Balance Assessment Sitting Balance Static Sitting Balance Ability Normal Dynamic Sitting Balance Ability Normal Standing Balance Static Standing Balance Ability Normal Dynamic Standing Balance Ability Normal Device Used none Balance Tests Mendez Balance Test Mendez Balance Test Score 56/56 mCTSIB mCTSIB Position 1 30 seconds eyes open, stable surface; no sway mCTSIB Position 2 30 seconds eyes closed, stable surface; minimal sway, ankle strategy mCTSIB Position 3 30 seconds eyes closed, foam surface; minimal sway, ankle strategy mCTSIB Position 4 30 seconds eyes closed, foam surface; increased sway,no LOB , ankle strategy Romberg Romberg 30 seconds, minimal sway Single Limb Standing Single Limb- Right 30 seconds Single Limb- Left 30 seconds Tandem Tandem Standing 30 seconds ea LE, increased sway Chance Fall Scale Copyright Permission PT-OP-E Functional Tests Start: 10/04/23 09:44 Freq: Status: Active Protocol: Document 10/04/23 09:44 NM (Rec: 10/04/23 11:43 NM [id number]) Functional Tests 30 Second Sit to Stand Test Score 19 Comments demos increased trunk flexion with squat PT-OP-F Manual Assessment Start: 10/04/23 09:44 Freq: Status: Active Protocol: Document 10/04/23 09:44 NM (Rec: 10/04/23 11:43 NM [id number]) Manual Assessments Soft Tissue Assessment Soft Tissue Mobility Assessment Minimal restrictions of hip flexors, hamstrings Joint Mobility Assessment Joint Mobility Assessment Full B hip/knee PROM, lumbar spine AROM PT-OP-G Mobility & Gait Start: 10/04/23 09:44 Freq: Status: Active Protocol: Document 10/04/23 09:44 NM (Rec: 10/04/23 11:43 NM [id number]) OP Gait Assessment Gait Gait Assistance Required: Independent Distance (Feet) 500 Assistive Devices Assistive Device None Gait Deviations General Gait Pattern Within Normal Limits Comments Gait Comments Pt has steady gait, increased gait speed. Good awareness of surroundings Stair Climbing Evaluation Evaluation Level of Assist On Stairs Independent Devices Stair Climbing Assistive Devices None Technique/Endurance Stair Climbing Direction Ascend and Descend Stair Climbing Technique Step Over Step Number of Steps Climbed 4 Stair Climbing Set # Repetitions (reps) 5 Comments Stair Climbing Comments Very quick speed, good balance PT-OP-H Neuro Start: 10/04/23 09:44 Freq: Status: Active Protocol: Document 10/04/23 09:44 NM (Rec: 10/04/23 11:43 NM [id number]) Sensation Evaluation Comments Summary Comments Intact BLE light touch sensation PT-OP-J Posture/Palpation/Skin Start: 10/04/23 09:44 Freq: Status: Active Protocol: Document 10/04/23 09:44 NM (Rec: 10/04/23 11:43 NM [id number]) Posture Evaluation Position Standing Evaluation View Lateral Head/C-Spine Posture Forward Head Shoulder Posture (L) Forward,(R) Forward,(R) Elevated Scapula Posture (L) Protracted,(R) Protracted Pelvis Posture Anteriorly Tilted Weight Distribution Balanced Hip Posture (L) Externally Rotated,(R) Externally Rotated Patellar Posture (L) Superior,(R) Superior Ankle/Foot Posture (L) Forefoot Eversion,(R) Forefoot Eversion PT-OP-K Range of Motion Start: 10/04/23 09:44 Freq: Status: Active Protocol: Document 10/04/23 09:44 NM (Rec: 10/04/23 11:43 NM [id number]) Lumbar Spine Range of Motion Lumbar Spine Active Percentage Testing Position Standing Flexion 100 Extension 100 Rotation Left 100 Rotation Right 100 Lateral Flexion Left 100 Lateral Flexion Right 100 Comments Full AROM, cued straight leg to prevent compensation PT-OP-M Strength Start: 10/04/23 09:44 Freq: Status: Active Protocol: Document 11/05/23 09:04 NM (Rec: 11/05/23 10:16 NM [id number]) Hip Strength Hip Manual Muscle Testing Left Flexion (L2) 4+ Good+ Extension (S1) 4- Good- Abduction 4 Good Adduction 4+ Good+ External Rotation 4+ Good+ Internal Rotation 4+ Good+ Comments 11/05/23: 4+/5 hip extension and abduction Right Flexion (L2) 4+ Good+ Extension (S1) 4- Good- Abduction 4 Good Adduction 4+ Good+ External Rotation 4+ Good+ Internal Rotation 4+ Good+ Comments 11/05/23: 4+/5 hip extension and abduction PT-OP-Q Treatments Start: 10/04/23 09:44 Freq: Status: Active Protocol: Document 11/05/23 09:04 NM (Rec: 11/05/23 09:44 NM [id number]) Therapeutic Exercises Prone Exercises prone postural strength Prone Exercise Name prone ITW Side bilateral Resistance 2# db ea Equipment Used large green fijian ball Reps/Minutes 2x10 ea Comments cued for neutral spine, no flex over ball (does not demo, edu on avoiding) plank Prone Exercise Name full plank, plank with hip ext with band, side planks Side bilateral Reps/Minutes 2x30 with alt hip ext 2# weights LE Comments monitored for pain and form spinal extension Prone Exercise Name endurance test Side bilateral Equipment Used mat on floor Reps/Minutes 2x30 Comments for lumbar extension strength bird dog Side bilateral Equipment Used lvl 3 tb with UE's 2 lbs on LE 's 2X10 Reps/Minutes 1x10 Comments neutral spine Sidelying Exercises side plank Sidelying Exercise Name full side plank Side bilateral Equipment Used mat Reps/Minutes 1x30 ea Comments cued neutral spine; demos no twisting Standing Exercises Core Standing Exercise Name around the worlds Side bilateral Resistance 5# tball at waist Reps/Minutes 30 CW, 30 CCW Comments cued neutral spine, elongated posture Y lift off Standing Exercise Name for postural strengthening Side bilateral Resistance 2# db ea hand Reps/Minutes 1x10 ea Comments cued leongated posture, neutral spine Time Loaded Standing Standing Exercise Name for time: arms at 90 deg FF, no back support Side bilateral Resistance 2# db ea hand Reps/Minutes 2 minutes Comments cued and encouraged to prevent arms drop; hard, arms shake Therapeutic Activity Therapeutic Activity 1/2 kneel picker Reps/Minutes 1x10 ea side Comments 10# db, from split squat position, using hip hinge Cued to keep weight closer to body, no progression above 10# . L side more challenging than R side, using hands to assist at quad to stand Hip hinge Comments Squat picker from floor, 1x10 10# db with hip hinge, squat mechanics. Neutral spine Self-Care/Home Management Treatment Education Patient Education Body Mechanics,Home Exercise Program,Joint Protection,Pain Management,Posture,Safety Other Education 8 minutes: Reviewed past HEP, added additional postural exercises to HEP. Educated on maintenance 3x/wk with mix of postural, BLE strengthening and impact exercise. Recommended gym only 3x/wk, alternating exercises; continued ambulation daily. Educated on fracture risk, fracture signs and symptoms, hiking with trek poles for additional stability. Reviewed safe core, postural exercises , machines/exercises for gym; pt verbalizing safe mechanics with exercise. HEP: prone W, T , extension, standing Y lift off PT-OP-T Assessment and Plan Start: 10/04/23 09:44 Freq: Status: Active Protocol: Document 11/05/23 09:04 NM (Rec: 11/05/23 09:44 NM [id number]) Physical Therapy Assessment Goals Five Impairment education Game Engineer Goal (LTG) Pt will be provided with at least 3 resources for osteoporosis regarding condition, diet, exercise, activity modification, and safe movement patterns for further education regarding diagnosis and to decrease risk of fracture. 10/12/23: MET- pt provided with handouts, websites, videos, and other resources from various national osteoporosis groups regarding above information LTG Duration 6 weeks MET Four Impairment trunk extensor strength Group Home Goal (LTG) Pt will be able to perform at least 10 bilateral bird dogs with good form (stable pelvis) or a modified plank or better for at least 30 seconds in order to demonstrate improved core stability and spinal extensor strength required to prevent forward trunk posture. 10/30/23: bird dog with theraband, good core stability 10/23/2023 10 bird dogs with good form dowel remains along spine throughout 10/26/23 able to perform full plank 60 seconds good form, no muscle shaking. LTG Duration 6 weeks MET Three Impairment strength Impairment B hip ext 4-/5, hip abd 4/5 Game Engineer Goal (LTG) Pt will improve B hip ext and B hip abd strength to at least 4+/5 in order to demonstrate improved hip strength needed to stabilize pelvis during activity. 11/05/23: 4+/5 hip ext and abd LTG Duration 6 weeks MET Two Impairment Not performing osteoporosis- specific exercise program Short Term Goal (STG) Pt will report compliance with osteoporosis-specific HEP at least 3x/wk in order to demonstrate improved understanding of diagnosis. 10/18/23: Pt compliant with HEP 3x/wk, choosing which exercises to do ea day Group Home Goal (LTG) Pt will report compliance with osteoporosis-specific exercise program at least 3x/ wk for maintainance to maximize gains made during PT. 10/30/23: Compliant with HEP, started going to gym every day LTG Duration 6 weeks MET One Impairment body mechanics Short Term Goal (STG) Pt will demonstrate good hip hinge mechanism during bending and lifting for at least 5/10 reps in order to demonstrate improved safety and posture to decrease risk of compression fracture. 10/30/22: AROM with hip hinge, 1x10 reps with good mechanics Group Home Goal (LTG) Pt will demonstrate good body mechanics utilizing hip hinge and limiting spinal flexion when lifting a 10# object from the floor in order to demonstrate improved safety and posture to decrease risk of compression fracture. 11/05/23: MET, able to pick 10# object from floor in both squat and 1/2 kneel positions with good spinal posture LTG Duration 6 weeks, MET Progress Towards Goals Progress Towards Goals Goals Met Progress Comments All goals met Assessment Summary Assessment Pt tolerated treatment well without any instances of pain or soreness in session. Session spent finalizing HEP with core and postural strengthening, addressing any last minute pt concerns about independent exercise. PT educated pt on continued safe postures, exercises, fracture signs/symptoms and risk, strengthening with good body mechanics and neutral spine posture. Pt verbalizes understanding. Continued with core and lumbar/hip extensor and abductor strengthening. Progressed planks and prone lumbar extension with endurance hold. Pt challenged by endurance exercise, but demonstrates improved strength . Initiated prone scapular/ postural strengthening on fijian ball and Y lift offs in standing. Pt cued for neutral spine, limit trunk flexion. Pt safely demos ability to picker to 10# from floor with good body mechanics using hip hinge; educated on lifting limits for safety. Pt has been seen for strengthening and safe exercise progression s/p osteoporosis dx since October 2023. She has progressed well with BLE and lumbar extensor strength, in addition to postural and core strengthening. Pt is now attending a gym 3x/wk, performing daily ambulation for weightbearing training to reduce disease progression. She is able to stabilize her core with neutral spine during planks, bird dogs, and other spinal extension exercise. Issued HEP with additional spine safe exercises for pt to add to gym routine. Pt is aware of safe spine movements, avoiding excess spine flexion and twisting or additional movements that increase fracture risk. Pt able to verbalize and demonstrate good body mechanics with lifting, ambulation, ADLs for safety, decrease fracture risk. Pt has met all PT goals. PT and pt discussed discharge to independent exercise; PT and pt in agreement. PT discussed signs/symptoms of fracture, spine injury with pt; educated to follow up with PCP if should occur. Pt verbalizes understanding. Pt is safe to discharge to independent exercise. Physical Therapy Plan Frequency and Duration Frequency of Treatment 1-2/wk Duration of treatment (weeks) 6 Plan of Care Start Date 10/04/23 Plan of Care End Date 11/16/23 Therapeutic Interventions Therapeutic Interventions Aquatic Therapy,Balance Training,Coordination Training ,Gait Training,Home Exercise Program,Joint Mobilizations, Manual Therapy,Neuromuscular Re-education,Orthotic/ Prosthetic Management,Patient/ Caregiver Education,Self-Care/ Home Management,Sensory Integration,Soft Tissue Mobilization,Taping, Therapeutic Activities, Therapeutic Exercises Modalities Cold Pack/Ice Massage,Electric Stimulation,Hot Packs, Ultrasound,Vasopneumatic Devices Other Referrals/Consults Referrals/Consults Recommended Recommend dietary consult to address any limitations in diet and supplements for improved bone health Discharge Physical Therapy Discharge Reasons Goals Met Next Visit Focus/Plan Next Visit Plan Discharge from PT services
== END 2023-11-08 12:26 | disposition home or self-care (01) ==
LOC: PHYS 09:00
PROVIDERS: Family Provider Family Medicine; PCP Family Medicine; Referring Provider Family Medicine; Visit Provider Family Medicine
DX: M81.0 Age-related osteoporosis without current pathological fracture (principal)
CPT/HCPCS: 97110; 97161; 97530; 97535

== ENCOUNTER → 2023-11-07 16:11 | Outpatient (CLI) | payer OTHER, SELFPAY ==
[2023-11-07 17:39] LABS: Calcium 9.7 mg/dL (8.4-10.2)
== END ==
LOC: LAB 16:11
PROVIDERS: Family Provider Family Medicine; PCP Family Medicine; Referring Provider Family Medicine; Visit Provider Family Medicine
DX: M81.0 Age-related osteoporosis without current pathological fracture (principal)
CPT/HCPCS: 36415; 82310

== ENCOUNTER → 2024-04-18 10:03 | Outpatient (CLI) | payer OTHER, SELFPAY ==
[2024-04-20 00:10] LABS: Calcium 9.5 mg/dL (8.7-10.2); Parathyroid Hormone, Intact 20 pg/mL (15-65)
== END ==
PROVIDERS: Family Provider Family Medicine; PCP Family Medicine; Referring Provider Family Medicine; Visit Provider Family Medicine
DX: M81.0 Age-related osteoporosis without current pathological fracture (principal); E55.9 Vitamin D deficiency, unspecified
CPT/HCPCS: 36415; 82306; 82310; 83970

== ENCOUNTER → 2024-06-13 08:14 | Outpatient (CLI) | payer OTHER, SELFPAY ==
--- NOTE | 2024-06-13 | DI.MG.S_ITS ---
BILATERAL DIGITAL SCREENING MAMMOGRAM 3D/2D WITH CAD: 06/13/2024 CLINICAL: Routine screening. Comparison is made to exams dated: 06/12/2023 mammogram - [facility], 01/16/2022 mammogram - [facility], 05/14/2021 mammogram, 11/08/2020 mammogram, and 05/04/2020 mammogram - [facility]. There are scattered areas of fibroglandular density (category b / 25%-50% glandular tissue). Current study was also evaluated with a Computer Aided Detection (CAD) system. No significant masses, calcifications, or other findings are seen in either breast. There has been no significant interval change. IMPRESSION: NEGATIVE There is no mammographic evidence of malignancy. A 1 year screening mammogram is recommended. Based on the Tyrer Cuzick model (a risk assessment model) the patient's lifetime risk is 7.0% and her 10 year risk is 2.7%. According to the ACR, ACS, and NCCN guidelines, an annual breast MRI exam along with mammogram is recommended if the patient's lifetime risk is 20% or greater. This exam was interpreted at Station ID: [id number]. NOTE: For mammograms, a report in lay terms will be sent to the patient. Approximately 15% of breast malignancies will not be visualized mammographically. In the management of a palpable breast mass, a negative mammogram must not discourage biopsy of a clinically suspicious lesion. Electronically Signed By: Eric sawyer/paul:06/13/2024 12:24:30 letter sent: Normal Exam ACR BI-RADS Category 1: Negative
== END ==
PROVIDERS: Family Provider Family Medicine; PCP Family Medicine; Referring Provider Family Medicine; Visit Provider Family Medicine
DX: Z12.31 Encounter for screening mammogram for malignant neoplasm of breast (principal)
CPT/HCPCS: 77063; 77067

== ENCOUNTER → 2024-08-30 08:34 | Outpatient (CLI) | payer OTHER, SELFPAY ==
[2024-08-30 09:03] LABS: Add Manual Diff / Slide Review NO; Basophils Absolute Auto 0 /uL (0-100); Basophils Percent Auto 0.5 % (0-2); Eosinophils Absolute Auto 300 /uL (0-450); Eosinophils Percent Auto 4.6 % (2-4); Hematocrit 41.9 % (36-46); Hemoglobin 14.2 g/dL (12.0-16.0); Lymphocytes Absolute Auto 1900 /uL (1100-4500); Lymphocytes Percent Auto 34.5 % (25-40); Mean Corpuscular HGB Conc 33.8 % (30-36); Mean Corpuscular Volume 88.9 fL (80-100); Monocytes Absolute Auto 400 /uL (0-900); Monocytes Percent Auto 7.5 % (3-14); Neutrophils Absolute Auto 2900 /uL (1500-7000); Neutrophils Percent Auto 52.9 % (50-75); Platelet Count 209 X10^3/uL (150-400); Red Blood Cell Count 4.72 X10^6/uL (4.0-5.2); Red Cell Distribution Width 13.3 % (11.6-14.8); White Blood Cell Count 5.5 X10^3/uL (4.5-11.0)
[2024-08-30 09:19] LABS: Alanine Aminotransferase 18 IU/L (<35); Albumin 4.2 g/dL (3.5-5.0); Albumin Globulin Ratio 1.7 (1.0-2.8); Alkaline Phosphatase 53 U/L (38-126); Aspartate Aminotransferase 28 IU/L (14-36); BUN Creatinine Ratio 17.6 (6-22); Bilirubin Total 0.7 mg/dL (0.2-1.3); Blood Urea Nitrogen 13 mg/dL (7-17); Calcium 9.1 mg/dL (8.4-10.2); Carbon Dioxide 30 mmol/L (22-32); Chloride 102 mmol/L (98-107); Cholesterol 167 mg/dL (140-199); Estimated Glomerular Filt Rate > 60 mL/min (>60); Globulin 2.5 g/dL (1.7-4.1); Glucose 93 mg/dL (70-100); HDL Cholesterol 65 mg/dL (40-60); HEMOLYSIS < 15 (0-50); LDL Cholesterol Calculated 75 mg/dL (<100); Potassium 4.5 mmol/L (3.4-5.1); Sodium 135 mmol/L (137-145); Total Protein 6.7 g/dL (6.3-8.2); Triglycerides 133 mg/dL (35-150)
[2024-08-30 09:46] LABS: TSH w/ Reflex to FT4 1.53 uIU/mL (0.47-4.68)
== END ==
PROVIDERS: Family Provider Family Medicine; PCP Family Medicine; Referring Provider Family Medicine; Visit Provider Family Medicine
DX: E55.9 Vitamin D deficiency, unspecified (principal); E89.0 Postprocedural hypothyroidism; E78.2 Mixed hyperlipidemia; E04.1 Nontoxic single thyroid nodule
CPT/HCPCS: 36415; 80053; 80061; 84443; 85025

== ENCOUNTER → 2025-02-16 08:43 | Outpatient (CLI) | payer OTHER, SELFPAY ==
[2025-02-16 09:49] LABS: Alanine Aminotransferase 18 IU/L (<35); Albumin 4.7 g/dL (3.5-5.0); Albumin Globulin Ratio 1.7 (1.0-2.8); Alkaline Phosphatase 70 U/L (38-126); Aspartate Aminotransferase 26 IU/L (14-36); BUN Creatinine Ratio 19.2 (6-22); Bilirubin Total 0.6 mg/dL (0.2-1.3); Blood Urea Nitrogen 14 mg/dL (7-17); Calcium 9.3 mg/dL (8.4-10.2); Carbon Dioxide 28 mmol/L (22-32); Chloride 100 mmol/L (98-107); Estimated Glomerular Filt Rate > 60 mL/min (>60); Globulin 2.7 g/dL (1.7-4.1); Glucose 101 mg/dL (70-99); HEMOLYSIS < 15 (0-50); Sodium 136 mmol/L (137-145); Total Protein 7.4 g/dL (6.3-8.2)
[2025-02-16 10:06] LABS: Free T4, Direct Thyroxine 1.21 ng/dL (0.78-2.19); Vitamin D 25 Hydroxy (D3) 55.6 ng/mL (30.0-100.0)
[2025-02-16 10:20] LABS: Thyroid Stimulating Hormone 2.17 uIU/mL (0.47-4.68)
== END ==
LOC: LAB 08:45
PROVIDERS: Family Provider Family Medicine; PCP Family Medicine; Referring Provider Internal Medicine Rheumatology; Visit Provider Internal Medicine Rheumatology
DX: M81.8 Other osteoporosis without current pathological fracture (principal)
CPT/HCPCS: 36415; 80053; 82306; 82523; 83970; 84155; 84165; 84439; 84443

== ENCOUNTER → 2025-06-15 14:56 | Outpatient (CLI) | payer OTHER, SELFPAY ==
--- NOTE | 2025-06-15 14:58 | DI.MG.S_ITS ---
MM screening mammo BI: 06/15/2025. BI-RADS: 0 CLINICAL: 60-year old female for bilateral screening mammogram. Tyrer-Cuzick lifetime risk of 3.3%. No personal or first-degree family history of breast cancer. PRIOR EXAMS 06/13/2024, 06/12/2023, 01/16/2022, 05/14/2021. MAMMOGRAPHY TECHNIQUE: 2D and 3D (tomosynthesis) digital mammographic views obtained, with additional images as needed for full coverage. Current study was also evaluated with a Computer Aided Detection (CAD) system. DENSITY B. There are scattered areas of fibroglandular density. MAMMOGRAPHY FINDINGS Right: No suspicious mass, asymmetry, microcalcification, or other abnormality seen. Left: CC only, Outer, Middle depth: Architectural distortion needing additional imaging evaluation. IMPRESSION: Right * No evidence of malignancy. Left (Arch Distortion): CC only, Outer, Middle depth * Incomplete - architectural distortion needing additional imaging evaluation. RECOMMENDATIONS Left: CC only, Outer, Middle depth * Further evaluation with diagnostic mammography and diagnostic ultrasound. Ultrasound to be performed only if needed. OVERALL ASSESSMENT CATEGORY BI-RADS-0: Incomplete - Need Additional Imaging Evaluation. ELECTRONICALLY SIGNED: Eric Huynh M.D. on 06/16/2025 at 12:18:55 PM PT Interpreting Station ID: [id number]
== END ==
LOC: MAMMO 14:57
PROVIDERS: Family Provider Family Medicine; PCP Family Medicine; Referring Provider Family Medicine; Visit Provider Family Medicine
DX: R92.2 Inconclusive mammogram (principal)
CPT/HCPCS: 77063; 77067

== ENCOUNTER → 2025-06-25 09:22 | Outpatient (CLI) | payer OTHER, SELFPAY ==
--- NOTE | 2025-06-25 09:23 | DI.MG.S_ITS ---
MM diagnostic mammo unilat LT: 06/25/2025. BI-RADS: 2 CLINICAL: 60-year old female for left diagnostic mammogram that is a recall from screening on 06/15/2025. Tyrer-Cuzick lifetime risk of 3.7%. No personal or first-degree family history of breast cancer. PRIOR EXAMS: 06/15/2025, 06/13/2024, 06/12/2023, 01/16/2022, 05/14/2021, 11/08/2020, 06/02/2020, 05/04/2020, 04/23/2019. MAMMOGRAPHY TECHNIQUE: 2D and 3D (tomosynthesis) digital mammographic views obtained, with additional images as needed for full coverage. Current study was also evaluated with a Computer Aided Detection (CAD) system. DENSITY Left: B. There are scattered areas of fibroglandular density. MAMMOGRAPHY FINDINGS Left: CC only, Outer: The asymmetry seen on recent screening mammogram appears unchanged dating back to at least 04/23/2019. This finding also does not persist with spot compression views, consistent with benign superimposition of normal breast tissue. There are no suspicious masses, calcifications, or other findings in the breast. IMPRESSION: Left * No evidence of malignancy with benign findings. RECOMMENDATIONS Bilateral * Annual screening mammography. COMMENTS: Findings and recommendations were conveyed to the patient during today's evaluation. OVERALL ASSESSMENT CATEGORY BI-RADS-2: Benign. The [employer] recommends annual screening mammography beginning at age 40 for women with average risk of breast cancer. ELECTRONICALLY SIGNED: Vanessa Granado M.D. on 06/25/2025 at 10:21:21 AM PT Interpreting Station ID: [id number]
== END ==
PROVIDERS: Family Provider Family Medicine; PCP Family Medicine; Referring Provider Family Medicine; Visit Provider Family Medicine
DX: R92.8 Other abnormal and inconclusive findings on diagnostic imaging of breast (principal); R92.322 Mammographic fibroglandular density, left breast
CPT/HCPCS: 77065; G0279

== ENCOUNTER → 2025-08-29 08:38 | Outpatient (CLI) | payer OTHER, SELFPAY ==
[2025-08-29 09:00] LABS: Add Manual Diff / Slide Review NO; Hematocrit 43.1 % (36-46); Hemoglobin 14.9 g/dL (12.0-16.0); Lymphocytes Absolute Auto 1900 /uL (1100-4500); Mean Corpuscular HGB Conc 34.5 % (30-36); Mean Corpuscular Hemoglobin 30.2 PG (26-34); Mean Corpuscular Volume 87.4 fL (80-100); Platelet Count 204 X10^3/uL (150-400)
[2025-08-29 09:14] LABS: Alanine Aminotransferase 15 IU/L (<35); Albumin 4.8 g/dL (3.5-5.0); Albumin Globulin Ratio 1.8 (1.0-2.8); Alkaline Phosphatase 50 U/L (38-126); Blood Urea Nitrogen 16 mg/dL (7-17); Calcium 9.1 mg/dL (8.4-10.2); Carbon Dioxide 28 mmol/L (22-32); Chloride 98 mmol/L (98-107); Cholesterol 191 mg/dL (140-199); Estimated Glomerular Filt Rate > 60 mL/min (>60); Globulin 2.6 g/dL (1.7-4.1); Glucose 96 mg/dL (70-99); HDL Cholesterol 80 mg/dL (40-60); HEMOLYSIS < 15 (0-50); Potassium 3.7 mmol/L (3.4-5.1); Sodium 136 mmol/L (137-145); Total Protein 7.4 g/dL (6.3-8.2); Triglycerides 97 mg/dL (35-150)
[2025-08-29 09:29] LABS: Vitamin D 25 Hydroxy (D3) 46.2 ng/mL (30.0-100.0)
[2025-08-29 09:44] LABS: TSH w/ Reflex to FT4 2.71 uIU/mL (0.47-4.68)
== END ==
PROVIDERS: PCP Family Medicine; Referring Provider Family Medicine; Visit Provider Family Medicine
DX: E55.9 Vitamin D deficiency, unspecified (principal); M81.0 Age-related osteoporosis without current pathological fracture; E04.1 Nontoxic single thyroid nodule; E78.5 Hyperlipidemia, unspecified
CPT/HCPCS: 36415; 80053; 80061; 82306; 84443; 85025

== ENCOUNTER → 2025-08-31 09:38 | Outpatient (CLI) | payer OTHER, SELFPAY ==
--- NOTE | 2025-08-31 09:39 | DI.RAD.S_ITS ---
PROCEDURE: XR DEXA AXIAL SKELETON INDICATIONS: Osteoporosis Screening COMPARISON: [facility], , XR DEXA AXIAL SKELETON, 08/30/2023, 9:51. FINDINGS: Lumbar Spine: Bone mineral density 0.733 g/cm2, T score -2.9. Left Femoral Neck: Bone mineral density 0.573 g/cm2, T score -2.5. Left Hip: Bone mineral density 0.697 g/cm2, T score -2.0. There is interval 5.1% increase in total left hip bone mineral density. Fracture Risk Calculation (when applicable): 10-year fracture risk of a major osteoporotic fracture 11 percent and of a hip fracture 2.0 percent. (T score greater or equal to -1.0 to: NORMAL) (T score from -1.1 to -2.4: OSTEOPENIA) (T score less than or equal to -2.5: OSTEOPOROSIS) IMPRESSION: Osteoporosis as above. Follow-up guidelines as follows: Osteoporosis: Consider a repeat DEXA and Vertebral Fracture Assessment (VFA) exam in 2 years or sooner if medically necessary, to reassess this patient's status. Osteopenia: Consider a repeat DEXA in 2-3 years to reassess this patient's status, or if there is a new clinical indication. Normal: Consider a repeat DEXA in 5 years or sooner, or if there is a new clinical indication. All treatment decisions require clinical judgment and consideration of individual patient factors, including patient preferences, comorbidities, previous drug use, risk factors not captured in the FRAX model (e.g., frailty, falls, vitamin D deficiency, increased bone turnover, interval significant decline in bone density ) and possible under- or over-estimation of fracture risk by FRAX. In addition, the NOF Guide recommends that FDA-approved medical therapies be considered in postmenopausal women and men age >= 50 years with a: * Hip or vertebral (clinical or morphometric) fracture * T-score of <=-2.5 at the spine or hip * Ten-year fracture probability by FRAX of >= 3% for hip fracture or >=20% for major osteoporotic fracture. Dictated by: Saurabh Conde M.D. on 08/31/2025 at 10:36 Approved by: Saurabh Conde M.D. on 08/31/2025 at 10:37
== END ==
LOC: RAD 09:38
PROVIDERS: PCP Family Medicine; Referring Provider Internal Medicine Rheumatology; Visit Provider Internal Medicine Rheumatology
DX: M81.8 Other osteoporosis without current pathological fracture (principal)
CPT/HCPCS: 77080